=== PATIENT | male | born 2000 | race Caucasian/White ===

== ENCOUNTER 2018-01-12 14:14 | Emergency (ER) | payer OTHER, SELFPAY ==
[2018-01-12 14:19] VITALS: BP 113/68; PULSE 86; RESP 17; TEMP 36.6; O2SAT 97
--- NOTE | 2018-01-12 14:48 | ED.GENADUL_ITS ---
Discharge Plan Disposition Patient Disposition: HOME Condition: Fair Discharge Details Chief Complaint: HeadInjury Clinical Impression: Concussion Primary Care Provider: Sea Maravilla ED Provider: Yumiko Lauren Home Meds and New Rx's Prescriptions: New ondansetron HCl [Zofran] 4 mg tablet 4 mg PO QID PRN (Reason: nausea and vomiting) Qty: 10 RF: 0 Discharge Instructions Instructions: Ondansetron (By mouth), Concussion (ED) Additional Instructions: Encourage hydration. Tylenol and/or ibuprofen as needed for discomfort. Please avoid screens and physical exertion as this will increase your headache and can prolong your postconcussive symptoms. If you develop increased pain, vomiting, altered mentation or other new/worsening symptoms please seek care urgently once again. Please follow-up with primary care in 1 week for reevaluation. Please see attached information on further concussive care. Zofran as prescribed to help with nausea. Stand Alone Forms: Work Release Referrals: Sea Maravilla DO [Primary Care Provider] - ([phone]) Discharge Data Discharge Date/Time-TO BE ENTERED AT DEPARTURE: 01/12/18 15:17 Medical Decision Making Patient is a 17-year-old male, accompanied by significant other, with chief complaint of headache. He reports that last night, he was roughhousing with friends. Reports that he was attempting to slide down a flight of stairs on his bottom when he lost control and fell down the following 8. Was already in a seated position but states that he struck his head against the ground. Denies loss conscious. No visual change. States since that time he has had right-sided head discomfort. Reports the pain is fairly minimal but that his head feels off. Is endorsing nausea but denies any vomiting. Reports he has been able to hydrate minimally Celsius appetite is been down today. Denies any pain in his neck. Several small abrasion over the left side of his upper back on his trapezius. Reports that this clot while going upstairs unclear what he struck this on. On exam, he is neurologically intact with no acute deficit. No morillo sign or raccoon eyes. No findings to suggest bleed or fracture. Full range of motion of the neck. He appears nontoxic. Vital signs are within normal limits. Will treat patient nausea with ODT Zofran and reassess. If this is successful we will send him home with this. Patient was diagnosed with concussion. Encourage hydration. We discussed activities that he should avoid a postconcussive care. Patient was given ODT Zofran. When I went to reassess the patient, he reports that he was not nauseated prior to receiving the medication. Seems to be a miscommunication initially he was reporting that he was actively nauseated. Is requesting discharge. Again, I reiterated postconcussive care. He was given strict return precautions. Advised on activities that he should avoid. Encouraged hydration. All his questions and concerns were addressed and he is in agreement this plan. He will contact primary care tomorrow to schedule follow-up. HPI General Mode of arrival: ambulatory . Date/Time Provider Initiated Documentation: 01/12/18 14:34 . Limitations to Documentation: no limitations . Information obtained by: patient . History of Present Illness 17 year old M presents to the emergency department with the chief complaint of head injury, described as moderate, with intensity rated at 5. Quality is described as aching, and is localized to the head. Patient reports no radiation. Patient started experiencing this day(s) (1) and it has been constant and other (reports improving). No relieving factors improve symptom(s ), No exacerbating factors reported . Patient notes headaches, loss of appetite and nausea/vomiting; denies confusion, cough, fever/chills, malaise, rash, seizure, shortness of breath, syncope and weakness. Related Data Home Medications Medication Instructions Recorded Confirmed ondansetron HCl [Zofran] 4 mg PO QID PRN #10 tab 01/12/18 Previous Rx's Medication Instructions Recorded ondansetron HCl [Zofran] 4 mg PO QID PRN #10 tab 01/12/18 Allergies Allergy/AdvReac Type Severity Reaction Status Date / Time codeine AdvReac Mild hyper Unverified 11/21/17 14:35 General Stated Complaint: HeadInjury IVON: 4 Review of Systems Constitutional Reports as per HPI, Reports fatigue, Reports fever(s), Denies frequent falls, Reports headache(s), Denies malaise, Reports poor appetite (states he has had nauseated since the incident, no vomiting. REports lowered appetite with minimal intake today) and Denies weakness Eyes Denies blurry vision, Denies change in vision, Denies eye discharge and Denies loss of vision ENT Denies abnormal hearing, Denies dizziness and Reports headache(s) Cardiovascular Denies chest pain, Denies syncope and Denies rapid heart rate Respiratory Denies chest congestion and Denies cough Gastrointestinal Denies abdominal pain, Reports nausea and Denies vomiting Musculoskeletal Reports system reviewed and no additional complaints, except as docu, Denies abnormal gait and Denies numbness Integumentary/Breasts Denies erythema, Denies rash and Denies sores Neurologic Reports as per HPI, Denies abnormal hearing, Denies abnormal gait, Denies behavioral changes, Denies dizziness, Denies syncope, Denies frequent falls, Reports headache(s), Denies lack of coordination, Denies focal weakness, Denies loss of vision, Denies memory loss, Denies numbness and Denies weakness Psychiatric Denies behavioral changes and Denies memory loss Endocrine Reports fatigue PFSH Family History Mother Essential hypertension Sister Age: 8 No problems noted. Father No problems noted. Other Diabetes Essential hypertension Medical History Migraines Social History Smoking/Tobacco Use Status: Never Exam Const General: cooperative, healthy appearing, comfortable, no acute distress, well developed and well groomed Nutritional Appearance: average body habitus and well nourished Orientation: alert and awake [facility] Head: normal to inspection, no palpable skull fracture, normocephalic, no Morillo 's sign, no contusions, no hematomas, no lacerations, no raccoon eyes and no scalp tenderness Ears: hearing grossly normal bilaterally, external ears normal and TM's normal bilaterally Mouth: oral mucosae normal, lip normal, tongue normal and oropharynx normal Eyes General: appearance normal, both eyes and all related structures Alignment and Position: alignment normal Periorbital: periorbital findings normal Eyelids: eyelids normal Conjunctivae: conjunctivae normal Pupils: PERRL, normal by confrontation and accommodation normal EOM: EOM intact bilaterally Neck Neck: normal visual inspection, full ROM and nontender Resp Effort & Inspection: normal respiratory effort, able to speak in complete sentences and no respiratory distress Auscultation: clear to auscultation bilaterally Cardio Rate: regular rate Rhythm: regular rhythm Heart Sounds: S1 normal and S2 normal Back/Spine/Pelvis Cervical Spine: normal cervical lordosis and cervical ROM normal Thoracic/Lumbar Spine: thoracic and lumbar spine normal to inspection Skin General skin exam: no rashes or lesions noted Trauma: no lacerations or abrasions Neuro General: alert, awake and oriented x3 Cranial Nerves: CN's II-XI intact bilaterally, PERRL, accommodation normal, EOM intact bilaterally, no nystagmus, facial strength normal, tongue midline, hearing normal and able to rotate head bilaterally Cognition: normal cognition Speech: speech normal Gait: normal gait Motor: muscle tone normal throughout and strength 5/5 throughout Sensory Exam: no sensory deficits noted DTR's: Rt Biceps: 2+, Lt Biceps: 2+, Rt Brachioradialis: 2+, Lt Brachioradialis : 2+, Rt Patellar: 2+, Lt Patellar: 2+, Rt Ankle: 2+ and Lt Ankle: 2+ Coordination: [id number] test normal, [id number] test normal, Romberg test normal and rapid alternating movement UE normal Extrem General: normal to inspection Psych Appearance: grossly normal and well kempt Speech and Movement: speech and movement normal Mood: congruent mood Affect: normal affect Course Vital Signs Temperature 36.6 C 01/12/18 14:19 Pulse 86 01/12/18 14:19 Respiratory Rate 17 01/12/18 14:19 Blood Pressure 113/68 01/12/18 14:19 Pulse Oximetry 97 01/12/18 14:19 Temperature 36.6 C 01/12/18 14:19 Temperature Source Temporal Artery Scan 01/12/18 14:19 Pulse 86 01/12/18 14:19 Respiratory Rate 17 01/12/18 14:19 Respiratory Effort 01/12/18 14:24 Respiratory Depth Normal 01/12/18 14:23 Respiratory Pattern Normal 01/12/18 14:23 Blood Pressure 113/68 01/12/18 14:19 Blood Pressure Position Sitting 01/12/18 14:19 Pulse Oximetry 97 01/12/18 14:19 Oxygen Delivery Method Room Air 01/12/18 14:19 Oxygen Flow Rate 0 01/12/18 14:19 Pain Level 6 01/12/18 14:19
[2018-01-12] MEDS: Ondansetron O.D.T. 4 MG TABEF PO (14:59)
[2018-01-12] MEDS: Acetaminophen 500 MG TAB 1000 MG PO (14:59)
== END 2018-01-12 15:17 | disposition home or self-care (01) ==
PROVIDERS: Emergency Provider Physician Assistant; PCP Family Medicine
DX: S06.0X0A Concussion without loss of consciousness, initial encounter (principal); W10.8XXA Fall (on) (from) other stairs and steps, initial encounter
CPT/HCPCS: 99283

== ENCOUNTER 2018-08-06 12:10 | Emergency (ER) | payer OTHER, SELFPAY ==
[2018-08-06 12:13] VITALS: BP 117/73; PULSE 86; RESP 14; TEMP 36.7; O2SAT 99
--- NOTE | 2018-08-06 12:29 | DI.RAD_ITS ---
SYMPTOMS/DIAGNOSIS: CHEST PAIN PA AND LATERAL CHEST: No priors. The heart is normal in size. The lungs are clear. The mediastinal structures and pleura appear intact. CONCLUSION: Normal chest.
--- NOTE | 2018-08-06 12:39 | ED.GENADUL_ITS ---
Discharge Plan Disposition Patient Disposition: HOME Condition: Improving Discharge Details Chief Complaint: RespSymp Clinical Impression: Atypical chest pain Primary Care Provider: Sea Maravilla ED Provider: Olman Mcgill Home Meds and New Rx's Prescriptions: No Action No Known Home Meds RF: 0 Discharge Instructions Instructions: Chest Pain (ED) Additional Instructions: Please feel free to return the emergency department for any new or worsening symptoms otherwise use [id number] Zantac as directed on packaging to see if this helps your symptoms. Follow-up with your primary care provider for reassessment or if symptoms are not improving. Referrals: Sea Maravilla, [Primary Care Provider] - (As needed for reassessment) Medical Decision Making <Beau Degroot MD - Last Filed: 08/06/18 12:39> ECG Data Attestation: I personally reviewed and interpreted this ECG (s) as follows: Prior ECG tracings: not available for review Interpretation: sinus rhythm, rate of 75, pr 134, no acute st t wave ischemic findings <Olman Mcgill NP - Last Filed: 08/06/18 14:30> Patient presenting the emergency department for chief complaint of chest pain. Patient states that this started 3 days ago and he initially thought it was heartburn. He states that he felt like there was a bubble around his heart and he would have episodes of sharp chest pain causing him to have some shortness of breath. This lasted approximately 30 minutes today causing him to come to the emergency department for evaluation. Patient does state some rapid heart rate sensation during these episodes that does seem to resolve. Patient states it is more of a aching type feeling substernally. Patient denies any fever chills, cough, nausea vomiting or diarrhea. Physical exam is unremarkable and shows normal cardiac exam without any rubs, murmurs, or irregularity. Respiratory exam and otherwise physical exam is unremarkable. Plan to check x-ray and labs. Given the patient states that this started out as a heartburn type sensation patient given GI cocktail pending results. EKG results reviewed with attending physician and shows sinus rhythm with no acute signs of infarct. Blood work was reviewed and showed negative troponin, nondiagnostic CMP and CBC. Chest x-ray was reviewed and shows no acute abnormalities. Patient was reassessed and stated improvement of symptoms. Given patient's description of chest pain and bubble feeling I feel that this is odd but may be gastritis or GERD. Patient was given Zantac to see if this helps and discharged to follow-up with primary care. Patient informed that if this does continue to resolve symptoms that he should take [id number] Zantac as needed. Return precautions discussed. After discussion of diagnosis and plan of care patient has no further needs, questions, or concerns and states clear understanding to return to the emergency department for any worsening symptoms. HPI <Beau Degroot MD - Last Filed: 08/06/18 12:39> General Date/Time Provider Initiated Documentation: 08/06/18 12:14 . Related Data Home Medications Medication Instructions Recorded Confirmed Unknown [No Known Home Meds] 01/17/18 08/06/18 Allergies Allergy/AdvReac Type Severity Reaction Status Date / Time codeine AdvReac Mild hyper Unverified 08/06/18 12:16 <Olman Mcgill NP - Last Filed: 08/06/18 14:30> General Mode of arrival: ambulatory . Limitations to Documentation: no limitations . Information obtained by: patient and RN notes reviewed . History of Present Illness 18 year old M presents to the emergency department with the chief complaint of Chest pain, shortness of breath, described as mild, Quality is described as aching, and is localized to the chest. Patient started experiencing this day(s) (3) and it has been intermittent. No relieving factors improve symptom(s), No exacerbating factors reported . Patient notes no other symptoms.. Patient did receive the following treatments prior to arrival, none General Stated Complaint: RespSymp IVON: 3 <Olman Mcgill NP - Last Filed: 08/06/18 14:30> Constitutional Denies chills, Denies fever(s) and Denies malaise Cardiovascular Reports as per HPI, Reports chest pain, Denies chest pain with activity, Denies syncope, Reports rapid heart rate, Denies irregular heart rhythm, Denies leg edema, Denies palpitations, Reports dyspnea and Denies dyspnea on exertion Respiratory Denies cough, Denies hemoptysis, Reports dyspnea and Denies dyspnea on exertion Gastrointestinal Denies abdominal pain, Denies nausea and Denies vomiting Neurologic Denies syncope Psychiatric Reports anxiety Endocrine Denies palpitations PFSH <Beau Degroot MD - Last Filed: 08/06/18 12:39> Medical History Migraine without aura and without status migrainosus, not intractable (Chronic 01/11/15) Heart murmur (Chronic 01/15/12) Migraines Family History Mother Essential hypertension Sister Age: 8 No problems noted. Father No problems noted. Other Diabetes Essential hypertension Social History Smoking/Tobacco Use Status: Never Alcohol Intake: current Alcohol Intake frequency: holidays/special occasions only Drug use: Never Substance use type: does not use Household members: significant other Housing: apartment current occupation: [employer] Pets and animals: Yes Pets and animals: cat(s) Current gender identity: male What type of physical activity do you participate in: regular exercise Frequency: 3-4 times per week Do you feel safe at home: Yes Do you feel safe in your relationship?: Yes <Olman Mcgill NP - Last Filed: 08/06/18 14:30> Const General: cooperative, healthy appearing, comfortable, no acute distress, not diaphoretic and not ill appearing Nutritional Appearance: average body habitus Orientation: alert, awake and oriented x3 Limitations: mental status not altered Neck Neck: normal visual inspection, full ROM, trachea midline, supple and no anterior neck swelling Thyroid: thyroid normal Carotids: normal carotid upstroke and no bruits Chest Chest: normal inspection of the chest Resp Effort & Inspection: normal respiratory effort and able to speak in complete sentences Auscultation: clear to auscultation bilaterally Cardio Jugular venous pressure: no JVD Palpation: normal PMI Rate: regular rate Rhythm: regular rhythm Heart Sounds: S1 normal, S2 normal, no click, no gallops, no murmurs and no rubs Bruits: no abdominal aortic bruits and no carotid bruits Pulses: radial pulses present bilaterally 2+ GI Palpation: soft and no pulsatile masses Auscultation: normal bowel sounds Skin General skin exam: no rashes or lesions noted Neuro General: alert, awake, oriented x3, tone normal and moves all extremities <Olman Mcgill NP - Last Filed: 08/06/18 14:30> Vital Signs Temperature 36.7 C 08/06/18 12:13 Pulse 86 08/06/18 12:13 Respiratory Rate 14 08/06/18 12:13 Blood Pressure 117/73 08/06/18 12:13 Pulse Oximetry 99 08/06/18 12:13 Temperature 36.7 C 08/06/18 12:13 Temperature Source Temporal Artery Scan 08/06/18 12:13 Pulse 86 08/06/18 12:13 Respiratory Rate 14 08/06/18 12:13 Respiratory Effort Non-Labored 08/06/18 12:18 Respiratory Depth Normal 08/06/18 12:18 Blood Pressure 117/73 08/06/18 12:13 Blood Pressure Position Sitting 08/06/18 12:13 Pulse Oximetry 99 08/06/18 12:13 Oxygen Delivery Method Room Air 08/06/18 12:13 Oxygen Flow Rate 0 08/06/18 12:13 Pain Level 4 08/06/18 12:36
[2018-08-06 13:28] LABS: Absolute Eosinophil Count 0.02 k/cumm (0.0-0.7); Absolute Lymphocyte Count 1.48 k/cumm (1.2-3.4); Absolute Monocyte Count 0.26 k/cumm (0.11-0.7); Absolute Neutrophil Count 2.63 k/cumm (1.2-6.7); Eosinophils % 0.5; HCT 43.2 % (40.0-50.0); HGB 15.3 g/dL (13.5-17.5); Lymphocytes % 33.7; Mean Corp. HGB Concentration 35.4 g/dL (32.0-36.0); Mean Corpuscular Hemoglobin 31.6 pg (27.0-33.0); Mean Corpuscular Volume 89.3 fL (80-95); Mean Platelet Volume 9.5 fL (8.0-11.0); Monocytes % 5.9; Neutrophils % 59.9; Platelet Count 234 x1000/uL (130-400); RBC 4.84 m/cumm (4.50-6.00); RBC Distribution Width 11.8 % (11.8-14.1); White Blood Cell Count 4.39 k/cumm (4.4-10.8)
[2018-08-06 13:39] LABS: ALT 40 U/L (12-78); AST 17 U/L (15-37); Alkaline Phosphatase 63 U/L (46-116); Anion Gap 7.9 mmol/L (3-11); BUN 9 mg/dL (7-18); Bilirubin, Total 0.6 mg/dL (0.2-1.0); CO2 28.1 mmol/L (21.0-32.0); CREATININE 0.75 mg/dL (0.70-1.30); Calcium 8.4 mg/dL (8.5-10.1); Chloride 104 mmol/L (98-107); Glucose 89 mg/dL (70-100); Magnesium 2.2 mg/dL (1.8-2.4); Potassium 3.8 mmol/L (3.5-5.1); Sodium 140 mmol/L (136-145); Total Protein 7.3 g/dL (6.4-8.2)
[2018-08-06 13:42] LABS: Troponin I < 0.02 ng/mL (0.00-0.06)
[2018-08-06 14:09] VITALS: BP 120/63; PULSE 84; RESP 16; TEMP 36.6; O2SAT 99
== END 2018-08-06 14:08 | disposition home or self-care (01) ==
PROVIDERS: Emergency Provider Nurse Practitioner Family; PCP Family Medicine
DX: R07.89 Other chest pain (principal); R01.1 Cardiac murmur, unspecified
CPT/HCPCS: 36415; 80053; 93005; 99285; 71046; 83735; 84484; 85025; 93010

== ENCOUNTER 2018-09-10 10:49 | Emergency (ER) | payer OTHER, SELFPAY ==
[2018-09-10 10:58] VITALS: BP 126/76; PULSE 79; RESP 20; TEMP 36.7; O2SAT 96
[2018-09-10] MEDS: Ibuprofen 600 MG TAB PO (11:44)
--- NOTE | 2018-09-10 11:55 | W.ED.GENAD ---
Discharge Plan Disposition Patient Disposition: HOME Condition: Good Discharge Details Chief Complaint: Headache Clinical Impression: Facial tingling sensation Primary Care Provider: Sea Maravilla ED Provider: Olman Mcgill Home Meds and New Rx's Prescriptions: No Action No Known Home Meds RF: 0 fluticasone furoate 27.5 mcg/actuation spray,suspension 2 spray MARCOS DAILY Qty: 9.1 RF: 0 rizatriptan 10 mg tablet 10 mg PO ONCE Qty: 10 RF: 0 Discharge Instructions Instructions: Paresthesia (ED) Additional Instructions: Return to the emergency department for any new or significant worsening of symptoms including rash, headache/neurological change, and or other concerns. Otherwise follow-up with your primary care provider for reassessment if not improving. If this turns into your typical migraine symptoms take your migraine medication and/or Excedrin Migraine [id number]. Referrals: Sea Maravilla DO [Primary Care Provider] - (As needed for reassessment or if not improved) Discharge Data Discharge Date/Time-TO BE ENTERED AT DEPARTURE: 09/10/18 12:05 Medical Decision Making Patient presenting the emergency department for chief complaint of right-sided facial tingling sensation. Patient denies any numbness, motor deficit, vision change, headache, or other neurological symptoms. He does state 2 days ago he played softball and yesterday noted a slightly sore neck but denies any neck pain, movement abnormalities, fever chills nausea vomiting. Patient also does report history of migraine headaches but has never had an aura with his headaches. Physical exam is unremarkable for any neurological findings and shows normal cranial nerve exam. Patient has perceived tingling to right cheek but otherwise facial nerve is fully intact and patient has full sensation to this area. Upon further questioning patient does state that he had been outside in the [facility] on but denies any knowledge of tick bite. Given odd neurological symptoms with no other findings tick panel was ordered but otherwise do not have any specific emergent diagnosis to go with patient symptoms. Also of consideration is possible aura type symptoms to patient's migraine but at this time he has no headache symptoms. Given some symptoms of cervical strain yesterday that resolved did plan on giving patient ibuprofen to see if this improves any of the symptoms otherwise discussed strict return precautions for any new or worsening symptoms and for patient to follow-up with primary care provider if not improving. HPI General Mode of arrival: ambulatory. Date/Time Provider Initiated Documentation: 09/10/18 11:07. Limitations to Documentation: no limitations. Information obtained by: patient, RN notes reviewed and old records reviewed. History of Present Illness 18 year old M presents to the emergency department with the chief complaint of Facial tingling, Quality is described as other (Denies pain or discomfort), and is localized to the face and right. Patient started experiencing this day(s) (1) and it has been intermittent. No relieving factors improve symptom(s), Patient notes no other symptoms.. Patient did receive the following treatments prior to arrival, none Related Data Home Medications Medication Instructions Recorded Confirmed Unknown [No Known Home Meds] 01/17/18 09/11/18 fluticasone furoate 27.5 2 spray MARCOS DAILY #9.1 ml 09/11/18 09/11/18 mcg/actuation nasal spray,suspension rizatriptan 10 mg tablet 10 mg PO ONCE #10 tab 09/11/18 09/11/18 Previous Rx's Medication Instructions Recorded fluticasone furoate 27.5 2 spray MARCOS DAILY #9.1 ml 09/11/18 mcg/actuation nasal spray,suspension rizatriptan 10 mg tablet 10 mg PO ONCE #10 tab 09/11/18 Allergies Allergy/AdvReac Type Severity Reaction Status Date / Time codeine AdvReac Mild hyper Verified 09/11/18 10:44 General Stated Complaint: Headache IVON: 3 Review of Systems Constitutional Denies body ache(s), Denies chills, Denies fever(s) and Denies headache(s) Eyes Denies change in vision ENT Denies dizziness and Denies headache(s) Cardiovascular Denies chest pain and Denies syncope Gastrointestinal Denies nausea and Denies vomiting Musculoskeletal Reports tingling Neurologic Reports as per HPI, Denies abnormal speech, Denies burning sensations, Denies dizziness, Denies syncope, Denies headache(s), Denies focal weakness, Denies sensory deficit, Reports tingling and Denies paresthesias [facility] Social History Smoking/Tobacco Use Status: Never Alcohol Intake: current Alcohol Intake frequency: holidays/special occasions only Drug use: Never Substance use type: does not use Household members: significant other Housing: apartment current occupation: [employer] Pets and animals: Yes Pets and animals: cat(s) Current gender identity: male What type of physical activity do you participate in: regular exercise Frequency: 3-4 times per week Do you feel safe at home: Yes Do you feel safe in your relationship?: Yes Exam Const General: cooperative, healthy appearing, no acute distress and well groomed Orientation: alert, awake and oriented x3 HENMT Head: normal to inspection Ears: hearing grossly normal bilaterally and TM's normal bilaterally Mouth: oral mucosae normal and moist mucous membranes Throat: posterior oropharynx normal Eyes Visual Fletcher: normal visual fletcehr by confrontation Alignment and Position: alignment normal Periorbital: periorbital findings normal Eyelids: eyelids normal Sclera: sclerae normal Cornea: corneas normal Pupils: PERRL EOM: EOM intact bilaterally and No nystagmus Neck Neck: normal visual inspection, full ROM, no lymphadenopathy and no meningeal signs Resp Effort & Inspection: normal respiratory effort and able to speak in complete sentences Auscultation: clear to auscultation bilaterally Cardio Rate: regular rate Rhythm: regular rhythm Heart Sounds: S1 normal and S2 normal Neuro General: alert, awake, oriented x3, gait normal, tone normal, moves all extremities, normal light touch, pain and propioception, no focal motor deficits, CN's II-XI intact bilaterally and not confused Cranial Nerves: no nystagmus Cognition: normal cognition Speech: speech normal Motor: muscle tone normal throughout, strength 5/5 throughout, no pronator drift, no movement abnormalities noted and no fasciculations Sensory Exam: no sensory deficits noted Coordination: [id number] test normal, Romberg test normal, Does not sway with eyes open, rapid alternating movement UE normal and rapid alternating movement LE normal Course Vital Signs Temperature 36.7 C 09/10/18 10:58 Pulse 79 09/10/18 10:58 Respiratory Rate 20 09/10/18 10:58 Blood Pressure 126/76 09/10/18 10:58 Pulse Oximetry 96 09/10/18 10:58 Temperature 36.7 C 09/10/18 10:58 Temperature Source Tympanic 09/10/18 10:58 Pulse 79 09/10/18 10:58 Respiratory Rate 20 09/10/18 10:58 Respiratory Effort Non-Labored 09/10/18 11:02 Blood Pressure 126/76 09/10/18 10:58 Blood Pressure Position Supine 09/10/18 10:58 Pulse Oximetry 96 09/10/18 10:58 Oxygen Delivery Method Room Air 09/10/18 10:58 Oxygen Flow Rate 0 09/10/18 10:58 Pain Level 5 09/10/18 10:58
--- NOTE | 2018-09-10 12:00 | ED.GENADUL_ITS ---
Discharge Plan Disposition Patient Disposition: HOME Condition: Good Discharge Details Chief Complaint: Headache Clinical Impression: Facial tingling sensation Primary Care Provider: Sea Maravilla ED Provider: Olman Mcgill Home Meds and New Rx's Prescriptions: No Action No Known Home Meds RF: 0 fluticasone furoate 27.5 mcg/actuation spray,suspension 2 spray MARCOS DAILY Qty: 9.1 RF: 0 rizatriptan 10 mg tablet 10 mg PO ONCE Qty: 10 RF: 0 Discharge Instructions Instructions: Paresthesia (ED) Additional Instructions: Return to the emergency department for any new or significant worsening of symptoms including rash, headache/neurological change, and or other concerns. Otherwise follow-up with your primary care provider for reassessment if not improving. If this turns into your typical migraine symptoms take your migraine medication and/or Excedrin Migraine [id number]. Referrals: Sea Maravilla DO [Primary Care Provider] - (As needed for reassessment or if not improved) Discharge Data Discharge Date/Time-TO BE ENTERED AT DEPARTURE: 09/10/18 12:05 Medical Decision Making Patient presenting the emergency department for chief complaint of right-sided facial tingling sensation. Patient denies any numbness, motor deficit, vision change, headache, or other neurological symptoms. He does state 2 days ago he played softball and yesterday noted a slightly sore neck but denies any neck pain, movement abnormalities, fever chills nausea vomiting. Patient also does report history of migraine headaches but has never had an aura with his headaches. Physical exam is unremarkable for any neurological findings and shows normal cranial nerve exam. Patient has perceived tingling to right cheek but otherwise facial nerve is fully intact and patient has full sensation to this area. Upon further questioning patient does state that he had been outside in the [facility] on but denies any knowledge of tick bite. Given odd neurological symptoms with no other findings tick panel was ordered but otherwise do not have any specific emergent diagnosis to go with patient symptoms. Also of consideration is possible aura type symptoms to patient's migraine but at this time he has no headache symptoms. Given some symptoms of cervical strain yesterday that resolved did plan on giving patient ibuprofen to see if this improves any of the symptoms otherwise discussed strict return precautions for any new or worsening symptoms and for patient to follow-up with primary care provider if not improving. HPI General Mode of arrival: ambulatory . Date/Time Provider Initiated Documentation: 09/10/18 11:07 . Limitations to Documentation: no limitations . Information obtained by: patient, RN notes reviewed and old records reviewed . History of Present Illness 18 year old M presents to the emergency department with the chief complaint of Facial tingling, Quality is described as other (Denies pain or discomfort), and is localized to the face and right. Patient started experiencing this day(s) (1) and it has been intermittent. No relieving factors improve symptom(s), Patient notes no other symptoms.. Patient did receive the following treatments prior to arrival, none Related Data Home Medications Medication Instructions Recorded Confirmed Unknown [No Known Home Meds] 01/17/18 09/11/18 fluticasone furoate 27.5 2 spray MARCOS DAILY #9.1 ml 09/11/18 09/11/18 mcg/actuation nasal spray,suspension rizatriptan 10 mg tablet 10 mg PO ONCE #10 tab 09/11/18 09/11/18 Previous Rx's Medication Instructions Recorded fluticasone furoate 27.5 2 spray MARCOS DAILY #9.1 ml 09/11/18 mcg/actuation nasal spray,suspension rizatriptan 10 mg tablet 10 mg PO ONCE #10 tab 09/11/18 Allergies Allergy/AdvReac Type Severity Reaction Status Date / Time codeine AdvReac Mild hyper Verified 09/11/18 10:44 General Stated Complaint: Headache IVON: 3 Review of Systems Constitutional Denies body ache(s), Denies chills, Denies fever(s) and Denies headache(s) Eyes Denies change in vision ENT Denies dizziness and Denies headache(s) Cardiovascular Denies chest pain and Denies syncope Gastrointestinal Denies nausea and Denies vomiting Musculoskeletal Reports tingling Neurologic Reports as per HPI, Denies abnormal speech, Denies burning sensations, Denies dizziness, Denies syncope, Denies headache(s), Denies focal weakness, Denies sensory deficit, Reports tingling and Denies paresthesias [facility] Social History Smoking/Tobacco Use Status: Never Alcohol Intake: current Alcohol Intake frequency: holidays/special occasions only Drug use: Never Substance use type: does not use Household members: significant other Housing: apartment current occupation: [employer] Pets and animals: Yes Pets and animals: cat(s) Current gender identity: male What type of physical activity do you participate in: regular exercise Frequency: 3-4 times per week Do you feel safe at home: Yes Do you feel safe in your relationship?: Yes Exam Const General: cooperative, healthy appearing, no acute distress and well groomed Orientation: alert, awake and oriented x3 HENMT Head: normal to inspection Ears: hearing grossly normal bilaterally and TM's normal bilaterally Mouth: oral mucosae normal and moist mucous membranes Throat: posterior oropharynx normal Eyes Visual Fletcher: normal visual fletcher by confrontation Alignment and Position: alignment normal Periorbital: periorbital findings normal Eyelids: eyelids normal Sclera: sclerae normal Cornea: corneas normal Pupils: PERRL EOM: EOM intact bilaterally and No nystagmus Neck Neck: normal visual inspection, full ROM, no lymphadenopathy and no meningeal signs Resp Effort & Inspection: normal respiratory effort and able to speak in complete sentences Auscultation: clear to auscultation bilaterally Cardio Rate: regular rate Rhythm: regular rhythm Heart Sounds: S1 normal and S2 normal Neuro General: alert, awake, oriented x3, gait normal, tone normal, moves all extremities, normal light touch, pain and propioception, no focal motor deficits, CN's II-XI intact bilaterally and not confused Cranial Nerves: no nystagmus Cognition: normal cognition Speech: speech normal Motor: muscle tone normal throughout, strength 5/5 throughout, no pronator drift, no movement abnormalities noted and no fasciculations Sensory Exam: no sensory deficits noted Coordination: [id number] test normal, Romberg test normal, Does not sway with eyes open, rapid alternating movement UE normal and rapid alternating movement LE normal Course Vital Signs Temperature 36.7 C 09/10/18 10:58 Pulse 79 09/10/18 10:58 Respiratory Rate 20 09/10/18 10:58 Blood Pressure 126/76 09/10/18 10:58 Pulse Oximetry 96 09/10/18 10:58 Temperature 36.7 C 09/10/18 10:58 Temperature Source Tympanic 09/10/18 10:58 Pulse 79 09/10/18 10:58 Respiratory Rate 20 09/10/18 10:58 Respiratory Effort Non-Labored 09/10/18 11:02 Blood Pressure 126/76 09/10/18 10:58 Blood Pressure Position Supine 09/10/18 10:58 Pulse Oximetry 96 09/10/18 10:58 Oxygen Delivery Method Room Air 09/10/18 10:58 Oxygen Flow Rate 0 09/10/18 10:58 Pain Level 5 09/10/18 10:58
[2018-09-10 12:05] VITALS: BP 117/69; PULSE 78; RESP 18; TEMP 36.7; O2SAT 97
[2018-09-11 10:49] LABS: Lyme Ab w Rflx to Lyme Confirm Negative
[2018-09-12 19:18] LABS: Anaplasma phagocytophilum Negative (Negative); B. miyamotoi PCR Negative (Negative); Babesia divergens/MO-1 Negative (Negative); Babesia duncani Negative (Negative); Babesia microti Negative (Negative); Ehrlichia chaffeensis Negative (Negative); Ehrlichia ewingii/canis Negative (Negative); Ehrlichia muris eauclairensis Negative (Negative)
== END 2018-09-10 12:05 | disposition home or self-care (01) ==
PROVIDERS: Emergency Provider Nurse Practitioner Family; PCP Family Medicine
DX: R20.2 Paresthesia of skin (principal); M54.2 Cervicalgia
CPT/HCPCS: 36415; 99282; 86618; 87798

== ENCOUNTER 2018-10-03 23:35 | Emergency (ER) | payer OTHER, SELFPAY ==
[2018-10-03 23:52] VITALS: BP 136/90; PULSE 74; RESP 16; TEMP 37.2; O2SAT 96
--- NOTE | 2018-10-03 23:52 | W.ED.GENAD ---
Discharge Plan Disposition Patient Disposition: HOME Condition: Good Discharge Details Chief Complaint: GenMedical Clinical Impression: Left inguinal pain Primary Care Provider: Sea Maravilla ED Provider: Sebastián Lucia Meds and New Rx's Prescriptions: Continued fluticasone furoate 27.5 mcg/actuation spray,suspension 2 spray MARCOS DAILY Qty: 9.1 RF: 0 rizatriptan 10 mg tablet 10 mg PO ONCE Qty: 10 RF: 0 Discharge Instructions Instructions: Inguinal Hernia (ED) Additional Instructions: This does not appear to be related to kidney stone, testicular torsion, infection. You do seem to have a small reducible inguinal hernia. Use Motrin and ice over the weekend as needed. If it continues to be symptomatic you will need to follow-up with a surgeon. Return to ED if you develop fever,\flank pain, testicular pain or swelling. Referrals: Stephanie Samano MD [ [facility] STAFF PHYSICIAN] - Sea Maravilla DO [Primary Care Provider] - Medical Decision Making Patient reports pain is getting better. He denies having pain in the testicle. Cremaster reflex normal bilaterally with nontender and normal size testicles. Epididymis does not appear tender or swollen. His discomfort seems to be in the left inguinal canal. I do feel a bulge push out with coughing and suspect is probably a small hernia. Cannot explain why acute onset of pain at rest. I do not think we are dealing with testicular torsion or epididymitis or orchitis. Will give Motrin and obtain UA and reevaluate. Pain has resolved with Motrin. Continues to have no back or flank pain and has no testicular pain. His urinalysis is negative. I do think it probably is related to a small left inguinal hernia. It is only present with increased intra-abdominal pressure. May continue Motrin over the next couple of days and avoid heavy lifting. Will need follow-up with a surgeon if it continues to be symptomatic. Return to ED if he develops fever, back or flank pain, testicular pain or swelling. HPI General Mode of arrival: ambulatory. Date/Time Provider Initiated Documentation: 10/03/18 23:51. Limitations to Documentation: no limitations. Information obtained by: patient. HPI Narrative: Patient presents to the ED with complaint of acute onset of left groin pain. Patient was sitting on the couch watching TV. He had acute onset of groin pain. He has been doing a lot of lifting over the last couple of days but was not actively lifting tonight. Pain started less than 30 minutes ago. It continues to bother him. It does not radiate anywhere. He does not feel that it really involves his testicle but seems higher up. There is no swelling or redness. There is no nausea or vomiting. He has no abdominal pain or back pain. Related Data Home Medications Medication Instructions Recorded Confirmed fluticasone furoate 27.5 2 spray MARCOS DAILY #9.1 ml 09/11/18 10/03/18 mcg/actuation nasal spray,suspension rizatriptan 10 mg tablet 10 mg PO ONCE #10 tab 09/11/18 10/03/18 Previous Rx's Medication Instructions Recorded fluticasone furoate 27.5 2 spray MARCOS DAILY #9.1 ml 09/11/18 mcg/actuation nasal spray,suspension rizatriptan 10 mg tablet 10 mg PO ONCE #10 tab 09/11/18 Allergies Allergy/AdvReac Type Severity Reaction Status Date / Time codeine AdvReac Mild hyper Verified 10/03/18 23:58 General IVON: 3 Review of Systems Review of Systems As documented in HPI otherwise negative as below. Const: no fever, chills, weakness Resp: no cough, SOB, pleuritic pain CV: no CP, diaphoresis, edema, syncope GI: no abdominal pain, nausea, vomiting, diarrhea Neuro: no headache, numbness, focal weakness, confusion PFSH Medical History Migraine without aura and without status migrainosus, not intractable (Chronic 01/11/15) Heart murmur (Chronic 01/15/12) Social History Smoking/Tobacco Use Status: Never Alcohol Intake: current Alcohol Intake frequency: holidays/special occasions only Drug use: Never Substance use type: does not use Household members: significant other Housing: apartment current occupation: [employer] Pets and animals: Yes Pets and animals: cat(s) Current gender identity: male What type of physical activity do you participate in: regular exercise Frequency: 3-4 times per week Do you feel safe at home: Yes Do you feel safe in your relationship?: Yes Exam Narrative Exam Narrative: Vitals: Afebrile with normal vitals. Const: WDWN male in NAD. HEENT: NC/AT. Normal facial exam. Neck: Supple. Trachea midline. Lungs: Normal respiratory effort. GI: Soft. NT/ND. No guarding or rebound. : Normal appearing male genitalia. No swelling, erythema, lesions. Bilateral testicles normal in size and nontender. Bilateral epididymis nontender. Right inguinal canal normal. Left inguinal canal with tenderness present. No bulge except with coughing. Normal bilateral cremaster reflex. Back: No CVAT. Neuro: A+O x 3. CN grossly in tact. Good strength and no focal deficit. Ext: No C/C/E. No deformity or tenderness. Skin: Warm and dry without rash.
[2018-10-03 23:56] VITALS: RESP 16
[2018-10-04] MEDS: Ibuprofen 600 MG TAB PO (00:01)
--- NOTE | 2018-10-04 00:01 | ED.GENADUL_ITS ---
Discharge Plan Disposition Patient Disposition: HOME Condition: Good Discharge Details Chief Complaint: GenMedical Clinical Impression: Left inguinal pain Primary Care Provider: Sea Maravilla ED Provider: Sebastián Lucia Meds and New Rx's Prescriptions: Continued fluticasone furoate 27.5 mcg/actuation spray,suspension 2 spray MARCOS DAILY Qty: 9.1 RF: 0 rizatriptan 10 mg tablet 10 mg PO ONCE Qty: 10 RF: 0 Discharge Instructions Instructions: Inguinal Hernia (ED) Additional Instructions: This does not appear to be related to kidney stone, testicular torsion, infection. You do seem to have a small reducible inguinal hernia. Use Motrin and ice over the weekend as needed. If it continues to be symptomatic you will need to follow-up with a surgeon. Return to ED if you develop fever,\flank pain, testicular pain or swelling. Referrals: Stephanie Samano MD [ [facility] STAFF PHYSICIAN] - Sea Maravilla DO [Primary Care Provider] - Medical Decision Making Patient reports pain is getting better. He denies having pain in the testicle. Cremaster reflex normal bilaterally with nontender and normal size testicles. Epididymis does not appear tender or swollen. His discomfort seems to be in the left inguinal canal. I do feel a bulge push out with coughing and suspect is probably a small hernia. Cannot explain why acute onset of pain at rest. I do not think we are dealing with testicular torsion or epididymitis or orchitis. Will give Motrin and obtain UA and reevaluate. Pain has resolved with Motrin. Continues to have no back or flank pain and has no testicular pain. His urinalysis is negative. I do think it probably is related to a small left inguinal hernia. It is only present with increased intra-abdominal pressure. May continue Motrin over the next couple of days and avoid heavy lifting. Will need follow-up with a surgeon if it continues to be symptomatic. Return to ED if he develops fever, back or flank pain, testicular pain or swelling. HPI General Mode of arrival: ambulatory . Date/Time Provider Initiated Documentation: 10/03/18 23:51 . Limitations to Documentation: no limitations . Information obtained by: patient . HPI Narrative: Patient presents to the ED with complaint of acute onset of left groin pain. Patient was sitting on the couch watching TV. He had acute onset of groin pain. He has been doing a lot of lifting over the last couple of days but was not actively lifting tonight. Pain started less than 30 minutes ago. It continues to bother him. It does not radiate anywhere. He does not feel that it really involves his testicle but seems higher up. There is no swelling or redness. There is no nausea or vomiting. He has no abdominal pain or back pain. Related Data Home Medications Medication Instructions Recorded Confirmed fluticasone furoate 27.5 2 spray MARCOS DAILY #9.1 ml 09/11/18 10/03/18 mcg/actuation nasal spray,suspension rizatriptan 10 mg tablet 10 mg PO ONCE #10 tab 09/11/18 10/03/18 Previous Rx's Medication Instructions Recorded fluticasone furoate 27.5 2 spray MARCOS DAILY #9.1 ml 09/11/18 mcg/actuation nasal spray,suspension rizatriptan 10 mg tablet 10 mg PO ONCE #10 tab 09/11/18 Allergies Allergy/AdvReac Type Severity Reaction Status Date / Time codeine AdvReac Mild hyper Verified 10/03/18 23:58 General IVON: 3 Review of Systems Review of Systems As documented in HPI otherwise negative as below. Const: no fever, chills, weakness Resp: no cough, SOB, pleuritic pain CV: no CP, diaphoresis, edema, syncope GI: no abdominal pain, nausea, vomiting, diarrhea Neuro: no headache, numbness, focal weakness, confusion PFSH Medical History Migraine without aura and without status migrainosus, not intractable (Chronic 01/11/15) Heart murmur (Chronic 01/15/12) Social History Smoking/Tobacco Use Status: Never Alcohol Intake: current Alcohol Intake frequency: holidays/special occasions only Drug use: Never Substance use type: does not use Household members: significant other Housing: apartment current occupation: [employer] Pets and animals: Yes Pets and animals: cat(s) Current gender identity: male What type of physical activity do you participate in: regular exercise Frequency: 3-4 times per week Do you feel safe at home: Yes Do you feel safe in your relationship?: Yes Exam Narrative Exam Narrative: Vitals: Afebrile with normal vitals. Const: WDWN male in NAD. HEENT: NC/AT. Normal facial exam. Neck: Supple. Trachea midline. Lungs: Normal respiratory effort. GI: Soft. NT/ND. No guarding or rebound. : Normal appearing male genitalia. No swelling, erythema, lesions. Bilateral testicles normal in size and nontender. Bilateral epididymis nontender. Right inguinal canal normal. Left inguinal canal with tenderness present. No bulge except with coughing. Normal bilateral cremaster reflex. Back: No CVAT. Neuro: A+O x 3. CN grossly in tact. Good strength and no focal deficit. Ext: No C/C/E. No deformity or tenderness. Skin: Warm and dry without rash.
[2018-10-04 00:32] LABS: Bilirubin Negative (Negative); Blood Negative (Negative); Clarity Clear (Clear); Glucose Negative (Negative); Ketones Negative (Negative); Leukocyte Esterase Negative (Negative); Nitrite Negative (Negative); Specific Gravity 1.015 (1.005-1.025); Urobilinogen 0.2 EU/dL (Up TO 0.2)
== END 2018-10-04 00:56 | disposition home or self-care (01) ==
PROVIDERS: Emergency Provider Emergency Medicine; PCP Family Medicine
DX: R10.30 Lower abdominal pain, unspecified (principal)
CPT/HCPCS: 99282; 81003

== ENCOUNTER 2019-01-22 12:55 | Emergency (ER) | payer OTHER, SELFPAY ==
[2019-01-22 12:49] VITALS: BP 149/85; PULSE 103; RESP 20; TEMP 36.7; O2SAT 99
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
[2019-01-22 14:00] VITALS: BP 121/82; PULSE 91; RESP 14; TEMP 36.9; O2SAT 98
== END 2019-01-22 14:07 | disposition home or self-care (01) ==
LOC: ER 14:07
PROVIDERS: Emergency Provider Physician Assistant; PCP Family Medicine
DX: S00.01XA Abrasion of scalp, initial encounter (principal); S80.02XA Contusion of left knee, initial encounter; V43.52XA Car driver injured in collision with other type car in traffic accident, initial encounter
CPT/HCPCS: 99282

== ENCOUNTER 2019-04-15 08:30 | Emergency (ER) | payer OTHER, SELFPAY ==
[2019-04-15 08:33] VITALS: BP 121/74; PULSE 72; RESP 12; TEMP 36.3; O2SAT 97
--- NOTE | 2019-04-15 08:50 | ED.GENADUL_ITS ---
Discharge Plan Disposition Patient Disposition: HOME Condition: Stable Discharge Details Chief Complaint: EyeProblem Clinical Impression: External hordeolum Primary Care Provider: Sea Maravilla ED Provider: Andrea Godinez Home Meds and New Rx's Prescriptions: No Action fluticasone furoate 27.5 mcg/actuation spray,suspension 2 spray MARCOS DAILY Qty: 9.1 RF: 0 Discharge Instructions Additional Instructions: 1. Drink plenty of fluids. 2. Continue all medications as prescribed. 3. Acetaminophen 1000mg every 4 hours (up to 5 time a day) and/or ibuprofen 600mg every 6 hours as needed for fever or pain. 4. Warm compresses to eye for 15 minutes at a time 5 times a day. Return to the Emergency Department (ED) if your condition worsens, does not improve as expected, or for ANY other concerns. Specifically, return if you have new or uncontrolled pain, worsening fever, difficulty breathing, vomiting, or are unable to drink fluids. Medical Decision Making Presents with worsening left eye/eyelid discomfort over the past 3 days. Exam consistent with an isolated hordeolum with a small pustule visualized. Discussed expectant management using warm compresses. Discharged with plan for OTC analgesia, frequent warm compresses, and follow-up as needed in 1 week if his symptoms do not improve. Given usual and customary return instructions at time of discharge. Medical Records Medical records reviewed: Yes I reviewed the patient's medical records. HPI 18-year-old with a history of migraines who presents with worsening left upper eyelid pain over the past 3 days. Noticed initial mild discomfort which has been progressive and now associated with itching and low-grade pain. He also noticed a lesion in the central portion of his eyelid at the margin. Pain, redness, and swelling has been increasing over the past 3 days. He denies primary discomfort in his global or change in visual acuity. He normally wears corrective lenses but has not been doing so recently. General Date/Time Provider Initiated Documentation: 04/15/19 08:48 . Related Data Home Medications Medication Instructions Recorded Confirmed fluticasone furoate 27.5 2 spray MARCOS DAILY #9.1 ml 09/11/18 04/15/19 mcg/actuation nasal spray,suspension Previous Rx's Medication Instructions Recorded fluticasone furoate 27.5 2 spray MARCOS DAILY #9.1 ml 09/11/18 mcg/actuation nasal spray,suspension Allergies Allergy/AdvReac Type Severity Reaction Status Date / Time codeine AdvReac Mild hyper Verified 04/15/19 08:36 General Stated Complaint: EyeProblem IVON: 5 Review of Systems All systems reviewed & are unremarkable except as noted in HPI and below PFSH Medical History Heart murmur (Chronic 01/15/12) innocent Migraine without aura and without status migrainosus, not intractable (Chronic 01/11/15) Hx migraines since 8yo, IMproved in recent years .. CUrrent H/A not migranous per se, but assoc neuralgia may be new symptoms for him .. Suggest Neuro to review/evaluate, especially as he may have migraines to some extent through life. Mild concussion (Acute) Family History Mother Essential hypertension Sister Age: 9 No problems noted. Father No problems noted. Other Diabetes MGGF Essential hypertension MGM Social History Smoking/Tobacco Use Status: Never Alcohol Intake: current Alcohol Intake frequency: holidays/special occasions only Drug use: Never Substance use type: does not use Household members: significant other Housing: apartment current occupation: [employer] Pets and animals: Yes Pets and animals: cat(s) Current gender identity: male What type of physical activity do you participate in: regular exercise Frequency: 3-4 times per week Do you feel safe at home: Yes Do you feel safe in your relationship?: Yes Exam Narrative Exam Narrative: Nursing note and vital signs have been reviewed and noted. GENERAL: alert, active, no acute distress, well -hydrated, well-nourished HEENT: atraumatic/normocephalic, PERRLA, EOMI, conjunctiva clear, external ears/canals normal, nasal mucosa normal; left eye: There is an area of erythema induration and swelling and a small superficial pustule central upper lid at the margin. Findings consistent with a hordeolum. NECK: supple, full range of motion CARDIOVASCULAR: nl pulses, no edema PULMONARY: nl effort, no audible wheezing or stridor ABDOMEN: non-distended EXTREMITY: normal muscle tone, all joints with FROM, no deformity NUERO: normal mentation, moving all extremities, normal stance and gait, PSYCH: alert and oriented SKIN: no new rashes or lesions Course Vital Signs Vital signs: Vital Signs Temperature 97.3 F L 04/15/19 08:33 Pulse 72 04/15/19 08:33 Respiratory Rate 12 04/15/19 08:33 Blood Pressure 121/74 04/15/19 08:33 Pulse Oximetry 97 04/15/19 08:33 Temperature 97.3 F L 04/15/19 08:33 Temperature Source Temporal Artery Scan 04/15/19 08:33 Pulse 72 04/15/19 08:33 Respiratory Rate 12 04/15/19 08:33 Respiratory Effort Non-Labored 04/15/19 08:35 Blood Pressure 121/74 04/15/19 08:33 Blood Pressure Position Sitting 04/15/19 08:33 Pulse Oximetry 97 04/15/19 08:33 Oxygen Delivery Method Room Air 04/15/19 08:33 Oxygen Flow Rate 0 04/15/19 08:33 Pain Level 0 04/15/19 08:33
== END 2019-04-15 08:52 | disposition home or self-care (01) ==
PROVIDERS: Emergency Provider Emergency Medicine; PCP Family Medicine
DX: H00.014 Hordeolum externum left upper eyelid (principal)
CPT/HCPCS: 99283

== ENCOUNTER 2019-05-07 20:36 | Emergency (ER) | payer OTHER, SELFPAY ==
[2019-05-07 20:42] VITALS: BP 146/98; PULSE 82; RESP 16; TEMP 37.2; O2SAT 97
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
--- NOTE | 2019-05-07 21:37 | DI.CT_ITS ---
EXAM: CT HEAD WO CT HEAD WO CLINICAL HISTORY: Headache. Headache TECHNIQUE: Imaging Protocol: Axial computed tomography images with coronal and sagittal reformatted images were created and reviewed COMPARISON: No exams were available for comparison FINDINGS: The ventricular system is normal in appearance. No evidence of acute intracranial hemorrhage, mass effect, or midline shift. The orbital structures are unremarkable. The temporal bone structures appear intact. Calvarium: Normal. Visualized Paranasal sinuses/Mastoids: Clear. IMPRESSION: Normal cranial CT. DATA REPOSITORY: All CT scans at this facility are submitted to the National Radiology Data Registry (NRDR) Dose Index Registry (DIR) with the [employer] (A[employer]). RADIATION OPTIMIZATION: All CT scans at this facility use at least one of these dose optimization te chniques: automated exposure control; mA and/or kV adjustment per patient size (includes targeted exa ms where dose is matched to clinical indication); or iterative reconstruction.
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
[2019-05-07 22:08] VITALS: BP 134/83; PULSE 82; RESP 16; O2SAT 97
== END 2019-05-07 22:10 | disposition home or self-care (01) ==
PROVIDERS: Emergency Provider Registered Nurse Emergency; PCP Family Medicine
DX: F07.81 Postconcussional syndrome (principal); G44.309 Post-traumatic headache, unspecified, not intractable; R11.0 Nausea; Z87.828 Personal history of other (healed) physical injury and trauma
CPT/HCPCS: 99284; 70450

== ENCOUNTER 2019-08-04 12:13 | Outpatient (CLI) | payer OTHER, SELFPAY ==
[2019-08-05 09:14] LABS: COVID-19 RT-PCR UVMMC Result Negative (Negative)
== END 2019-08-04 12:33 ==
PROVIDERS: PCP Family Medicine; Visit Provider Family Medicine
DX: R50.9 Fever, unspecified (principal)
CPT/HCPCS: U0003

== ENCOUNTER 2019-08-11 20:01 | Emergency (ER) | payer OTHER, SELFPAY ==
[2019-08-11 20:08] VITALS: BP 143/79; PULSE 71; RESP 16; TEMP 36.8; O2SAT 99
--- NOTE | 2019-08-11 20:24 | W.ED.GENAD ---
Discharge Plan Disposition Patient Disposition: HOME Condition: Good Discharge Details Chief Complaint: Headache Clinical Impression: Migraine headache Primary Care Provider: Sea Maravilla ED Provider: Sebastián Lucia [place] Meds and New Rx's Prescriptions: Continued [id number]-[id number]-[id number] 50-325-40 mg tablet 1 tab PO Q6H MDD No more than 4 tabs in 24 hr PRN (Reason: pain) Qty: 10 RF: 0 Discharge Instructions Additional Instructions: Home to get some rest/sleep. Drink plenty of fluids. Follow up with PCP as needed. Return to ED for severe, recurrent headache, neurological changes, mental status changes. Referrals: Sea Maravilla DO [Primary Care Provider] - Medical Decision Making Patient presenting with his typical migraine headache. He is afebrile. He has a normal neurologic exam. Unable to take anything because he was at work and now is having nausea vomiting. Will place IV and give fluids, ketorolac, metoclopramide, diphenhydramine and reevaluate. 21:45 -patient's headache is resolved. He feels remarkably better. He will be discharged home at this time. Follow-up with primary care as needed. Return to ED for recurrent severe headache, neurologic changes, altered mental status. Medical Records Medical records reviewed: Yes I reviewed the patient's medical records. HPI General Mode of arrival: ambulatory. Date/Time Provider Initiated Documentation: 08/11/19 20:07. Limitations to Documentation: no limitations. Information obtained by: patient and RN notes reviewed. HPI Narrative: Patient presents to ED with complaint of migraine headache which he has history of. Reports this started while at work. He was unable to take anything for it and now it has progressed to the point of nausea and vomiting. He has photophobia. He has no neurologic changes. Headache is typical for the migraines that he is used to. No fever, cough, shortness of breath, URI symptoms. Related Data Home Medications Medication Instructions Recorded Confirmed [id number]-pykjftdxuzcse-[id number] 1 tab PO Q6H PRN #10 tab MDD No 05/07/19 08/11/19 more than 4 tabs in 24 hr Previous Rx's Medication Instructions Recorded [id number]-[id number] 1 tab PO Q6H PRN #10 tab MDD No 05/07/19 more than 4 tabs in 24 hr Allergies Allergy/AdvReac Type Severity Reaction Status Date / Time codeine AdvReac Mild hyper Verified 08/11/19 20:10 General Stated Complaint: Headache IVON: 3 Review of Systems Narrative: As documented in HPI otherwise negative as below. Const: no fever, chills, weakness Resp: no cough, SOB, pleuritic pain CV: no CP, diaphoresis, edema, syncope GI: nausea and vomiting; no abdominal pain, diarrhea Neuro: headache; no numbness, focal weakness, confusion [facility] Medical History (Updated 08/11/19 @ 21:44 by Seabstián Lucia MD) Heart murmur (Chronic 01/15/12) innocent Migraine without aura and without status migrainosus, not intractable (Chronic 01/11/15) Hx migraines since 8yo, IMproved in recent years .. CUrrent H/A not migranous per se, but assoc neuralgia may be new symptoms for him .. Suggest Neuro to review/evaluate, especially as he may have migraines to some extent through life. Surgical History No significant past surgical history (Acute) Social History Smoking/Tobacco Use Status: Never Alcohol Intake: current Alcohol Intake frequency: holidays/special occasions only Drug use: Never Substance use type: does not use Household members: significant other Housing: apartment current occupation: [employer] Pets and animals: Yes Pets and animals: cat(s) Current gender identity: male What type of physical activity do you participate in: regular exercise Frequency: 3-4 times per week Do you feel safe at home: Yes Do you feel safe in your relationship?: Yes Exam Narrative Exam Narrative: Vitals: Afebrile. Elevated blood pressure but otherwise normal vitals and normal room air pulse ox. Const: WDWN male in NAD. HEENT: NC/AT. Normal facial exam. Eyes: Normal conjunctiva and sclera. PERRL and EOMI Neck: Supple. Trachea midline. Lungs: Normal respiratory effort. GI: Soft. NT/ND. No guarding or rebound. Neuro: A+O x 3. Normal speech, mentation, gait. Cranial nerves II - XII grossly intact. No gross motor or sensory deficit. Ext: No C/C/E. Skin: Warm and dry without rash. Course Vital Signs Vital signs: Vital Signs Temperature 98.3 F 08/11/19 20:08 Pulse 71 08/11/19 20:08 Respiratory Rate 16 08/11/19 20:08 Blood Pressure 143/79 H 08/11/19 20:08 Pulse Oximetry 99 08/11/19 20:08 Temperature 98.3 F 08/11/19 20:08 Temperature Source Skin 08/11/19 20:08 Pulse 71 08/11/19 20:08 Respiratory Rate 16 08/11/19 20:08 Respiratory Effort Non-Labored 08/11/19 20:11 Blood Pressure 143/79 H 08/11/19 20:08 Blood Pressure Position Sitting 08/11/19 20:08 Pulse Oximetry 99 08/11/19 20:08 Oxygen Delivery Method Room Air 08/11/19 20:08 Oxygen Flow Rate 0 08/11/19 20:08 Pain Level 7 08/11/19 20:08
[2019-08-11] MEDS: Lactated Ringers 1,000 ML 1000 ML IV (20:40)
[2019-08-11] MEDS: diphenhydrAMINE 50 MG/ML VIAL 25 MG IVP (20:40)
[2019-08-11] MEDS: Ketorolac 30 MG/ML VIAL IVP (20:41)
[2019-08-11] MEDS: Metoclopramide 10 MG/2 ML VIAL IVP (20:41)
== END 2019-08-11 21:55 | disposition home or self-care (01) ==
LOC: ER 23:58
PROVIDERS: Emergency Provider Emergency Medicine; PCP Family Medicine
DX: G43.009 Migraine without aura, not intractable, without status migrainosus (principal); R11.2 Nausea with vomiting, unspecified
CPT/HCPCS: 96361; 96374; 96375; 99284; J1200; J1885; J2765

== ENCOUNTER 2019-08-13 12:12 | Outpatient (CLI) | payer OTHER, SELFPAY ==
[2019-08-14 23:01] LABS: COVID-19 RT-PCR UVMMC Result Negative (Negative)
== END 2019-08-13 12:32 ==
PROVIDERS: PCP Family Medicine; Visit Provider Family Medicine
DX: R06.02 Shortness of breath (principal)
CPT/HCPCS: U0003

== ENCOUNTER 2019-10-17 11:58 | Emergency (ER) | payer OTHER, SELFPAY ==
[2019-10-17 12:02] VITALS: BP 122/79; PULSE 63; RESP 15; TEMP 36.9; O2SAT 97
--- NOTE | 2019-10-17 12:10 | ED.GENADUL_ITS ---
Discharge Plan Disposition Patient Disposition: HOME Condition: Good Discharge Details Chief Complaint: Orthopedic Clinical Impression: Cramp in muscle Primary Care Provider: Sea Maravilla ED Provider: Yumiko Lauren Home Meds and New Rx's Prescriptions: No Action No Known Home Meds RF: 0 Discharge Instructions Instructions: Muscle Cramp (ED) Additional Instructions: Please encourage water intake. You may also consider drinking sports drinks throughout the course the day as well. I am very concerned with your job, and this heat, that you are at high risk for dehydration and potential electrolyte abnormalities. These are reassuring today. Please follow-up with your primary care next week for reevaluation. If you develop any new or worsening symptoms please seek care urgently once again. Referrals: Sea Maravilla DO [Primary Care Provider] - Discharge Data Discharge Date/Time-TO BE ENTERED AT DEPARTURE: 10/17/19 13:20 Medical Decision Making Patient is a pleasant 19 year old male presenting today with c/c of right calf muscle spasm. He states that he has noted increased number of spasms recently. 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 He states that today, 1/2 hour prior ot arrival, he had a spontaneous muscle spasm. No trauma. Denies SOB, CP. States this lasted 2 minutes. He states that subsequently he had some tingling in his legs which has since been subsiding. Denies any fevers or chills. Is not noted muscle cramps elsewhere. No history of DVT, PE. No recent times of being sedentary. On exam, patient is resting comfortably. He is unremarkable right lower extremity exam. Brisk capillary refill, intact distal pulses, no evidence of DVT. Lungs are clear, normal cardiac exam. As patient is working outside and likely component of this is dehydration, I will obtain baseline labs. Patient is hydrating orally. Labs reviewed. No leukocytosis. H&H is stable. CMP without abnormality. Discussed these findings with the patient. Encourage hydration. We also discussed that he could use Gatorade or Pedialyte as well. Advise follow-up with primary care. All of his questions and concerns were addressed and is agreement this plan. HPI General Mode of arrival: ambulatory . Date/Time Provider Initiated Documentation: 10/17/19 12:10 . Limitations to Documentation: no limitations . Information obtained by: patient and RN notes reviewed . History of Present Illness 19 year old M presents to the emergency department with the chief complaint of RLE cramp, described as moderate, with intensity rated at 4. Quality is described as aching, and is localized to the right. Patient extremity. Patient started experiencing this minute(s) (30) and it has been now resolved. No relieving factors improve symptom(s), No exacerbating factors reported . Patient notes no other symptoms.; denies chest pain, cough, fever/chills, loss of appetite, nausea/vomiting, rash, shortness of breath and weakness. Patient did receive the following treatments prior to arrival, none Related Data Home Medications Medication Instructions Recorded Confirmed Unknown [No Known Home Meds] 10/17/19 10/17/19 Allergies Allergy/AdvReac Type Severity Reaction Status Date / Time codeine AdvReac Mild hyper Verified 10/17/19 12:07 General Stated Complaint: Orthopedic IVON: 4 Review of Systems Constitutional Constitutional: Reports as per HPI, Denies chills, Denies fever(s), Denies headache(s) and Denies weakness ENT Ears, Nose, Mouth, and Throat: Denies headache(s) Cardiovascular Cardiovascular: Reports as per HPI Respiratory Respiratory: Reports as per HPI and Denies cough Musculoskeletal Musculoskeletal: Reports as per HPI and Reports tingling (states he had tingling in RLE with spasm, improving) Integumentary/Breasts Skin/Breast: Reports as per HPI, Denies rash and Denies wounds Neurologic Neurologic: Reports as per HPI, Denies headache(s), Reports tingling (states he had tingling in RLE with spasm, improving) and Denies weakness [facility] Medical History Heart murmur (Chronic 01/15/12) innocent Migraine without aura and without status migrainosus, not intractable (Chronic 01/11/15) Hx migraines since 8yo, IMproved in recent years .. CUrrent H/A not migranous per se, but assoc neuralgia may be new symptoms for him .. Suggest Neuro to review/evaluate, especially as he may have migraines to some extent through life. Social History Smoking/Tobacco Use Status: Never Alcohol Intake: current Alcohol Intake frequency: holidays/special occasions only Drug use: Never Substance use type: does not use Household members: significant other Housing: apartment current occupation: [employer] Pets and animals: Yes Pets and animals: cat(s) Current gender identity: male What type of physical activity do you participate in: regular exercise Frequency: 3-4 times per week Do you feel safe at home: Yes Do you feel safe in your relationship?: Yes Exam Const General: cooperative, healthy appearing, comfortable, no acute distress, well developed and well groomed Nutritional Appearance: average body habitus and well nourished Orientation: alert and awake Resp Effort & Inspection: normal respiratory effort, able to speak in complete sentences and no respiratory distress Cardio Rate: regular rate Rhythm: regular rhythm Skin General skin exam: no rashes or lesions noted Lesions: no lesions Rashes: no rashes Trauma: no lacerations or abrasions Wounds: no wounds Hair: normal Neuro General: patient alert and patient awake Cognition: normal cognition Speech: speech normal Gait: normal gait Motor: muscle tone normal throughout Sensory Exam: no sensory deficits noted Extrem Right lower extremity: normal to inspection, full ROM, no joint enlargement, knee Details: normal to inspection and normal ROM; no tenderness, no swelling, no ecchymosis, no crepitus and no unusual warmth, lower leg Details: normal to inspection and no edema; no tenderness, no localized swelling, no palpable cords, no abrasions, no lacerations, no ecchymosis and no crepitus, ankle Details: normal to inspection, no edema and normal ROM; no tenderness, no swelling, no ecchymosis, no crepitus and achilles tendon exam normal and foot De tails: normal capillary refill and vascular exam Details: dorsalis pedis pulse present, posterior tibial pulse present and normal capillary refill Psych Appearance: grossly normal and well kempt Mental Status: mental status grossly normal Speech and Movement: speech and movement normal Course Vital Signs Vital signs: Vital Signs Temperature 36.9 C 10/17/19 12:02 Pulse 63 10/17/19 12:02 Respiratory Rate 15 10/17/19 12:02 Blood Pressure 122/79 10/17/19 12:02 Pulse Oximetry 97 10/17/19 12:02 Temperature 36.9 C 10/17/19 12:02 Temperature Source Temporal Artery Scan 10/17/19 12:02 Pulse 63 10/17/19 12:02 Respiratory Rate 15 10/17/19 12:02 Respiratory Effort Non-Labored 10/17/19 12:06 Blood Pressure 122/79 10/17/19 12:02 Pulse Oximetry 97 10/17/19 12:02 Oxygen Delivery Method Room Air 10/17/19 12:02 Oxygen Flow Rate 0 10/17/19 12:02 Pain Level 4 10/17/19 12:02
[2019-10-17 12:34] LABS: HCT 42.4 % (40.0-50.0); HGB 15.2 g/dL (13.5-17.5); Mean Corp. HGB Concentration 35.8 g/dL (32.0-36.0); Mean Corpuscular Hemoglobin 31.4 pg (27.0-33.0); Mean Corpuscular Volume 87.6 fL (80-95); Mean Platelet Volume 9.3 fL (8.0-11.0); Platelet Count 262 x1000/uL (130-400); RBC 4.84 m/cumm (4.50-6.00); RBC Distribution Width 11.6 % (11.8-14.1); White Blood Cell Count 4.56 k/cumm (4.4-10.8)
[2019-10-17 12:48] LABS: ALT 28 U/L (16-63); AST 12 U/L (15-37); Albumin 4.2 g/dL (3.4-5.0); Alkaline Phosphatase 54 U/L (46-116); BUN 10 mg/dL (7-18); Bilirubin, Total 0.9 mg/dL (0.2-1.0); CREATININE 0.87 mg/dL (0.70-1.30); Calcium 8.6 mg/dL (8.5-10.1); Chloride 104 mmol/L (98-107); Glucose 100 mg/dL (74-106); Sodium 138 mmol/L (136-145); Total Protein 7.2 g/dL (6.4-8.2)
== END 2019-10-17 13:20 | disposition home or self-care (01) ==
PROVIDERS: Emergency Provider Physician Assistant; PCP Family Medicine
DX: M62.831 Muscle spasm of calf (principal); R20.2 Paresthesia of skin
CPT/HCPCS: 36415; 80053; 85027; 99283

== ENCOUNTER 2020-03-01 06:47 | Emergency (ER) | payer OTHER, SELFPAY ==
[2020-03-01] VITALS (9 sets, daily range): BP systolic 129–141; BP diastolic 70–102; PULSE 81–102; RESP 12–18; TEMP 36.7; O2SAT 93–100
--- NOTE | 2020-03-01 06:45 | RT.EKG_ITS ---
APPROVED REPORT Exam: Resting ECG Patient Location: E HR:84 bpm ECG Measurements Heart Rate 84 AXIS AL 141 P 62 QRSd 92 QRS 83 QT 350 T 40 QTc 415 Conclusion Sinus arrhythmia...V-rate 71- 97, variation>10%
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
[2020-03-01] MEDS: Ibuprofen 600 MG TAB PO (07:16)
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
== END 2020-03-01 07:46 | disposition home or self-care (01) ==
LOC: ER 07:21
PROVIDERS: Emergency Provider Emergency Medicine; PCP Family Medicine
DX: S20.211A Contusion of right front wall of thorax, initial encounter (principal); S69.92XA Unspecified injury of left wrist, hand and finger(s), initial encounter; V47.6XXA Car passenger injured in collision with fixed or stationary object in traffic accident, initial encounter
CPT/HCPCS: 36415; 93005; 99285; 71045; 93010; 99284

== ENCOUNTER 2020-08-05 05:07 | Emergency (ER) | payer OTHER, SELFPAY ==
--- NOTE | 2020-08-05 05:09 | ED.GENADUL_ITS ---
Discharge Plan Disposition Patient Disposition: HOME Condition: Good Discharge Details Clinical Impression: Headache, migraine Primary Care Provider: Sea Maravilla ED Provider: Sebastián Lucia [place] Meds and New Rx's Prescriptions: New prochlorperazine maleate 10 mg tablet 10 mg PO Q6H PRN (Reason: migraine headache) Qty: 10 RF: 0 Changed ibuprofen 200 mg capsule 400 mg PO Q6H PRNQty: 0 RF: 0 Discharge Instructions Additional Instructions: Avoid taking too much Advil. Try the Compazine for recurrent migraines. Rest a nd hydrate today. Follow up with PCP next week if continued headaches. Return to ED for severe/different headache, neurological changes, vomiting. Referrals: Sea Maravilla DO [Primary Care Provider] - Medical Decision Making Patient presenting with migraine headache for last 5 days. Headache same as previous migraines. Has been using Advil without relief. Neuro exam is normal. Will place IV and give saline and Compazine. Check BMP given large amounts of Advil patient states he has been taking. 6:00 am - Resolution of headache with Compazine. BMP is fine. Discussed risk of too much Advil. Will prescribe Compazine for recurrent migraine. Follow up with PCP. Return to ED if neuro changes, worsening headache, vomiting. Medical Records Medical records reviewed: Yes I reviewed the patient's medical records. Lab Data Lab results reviewed: Yes I reviewed the patient's lab results. HPI General Mode of arrival: ambulatory . Date/Time Provider Initiated Documentation: 08/05/20 05:08 . Limitations to Documentation: no limitations . Information obtained by: patient, RN notes reviewed and old records reviewed . HPI Narrative: Patient presents to ED with migraine headache. Has history of same since child. This headache no different than previous but will not resolve after 5 days. Has been taking Advil every 4 hours to function. No neurological changes. Nausea but no vomiting. Does not feel able to go to work this morning due to headache and nausea so came here. Related Data Home Medications Medication Instructions Recorded Confirmed ibuprofen 400 mg PO Q6H PRN #0 cap 08/05/20 03/07/20 prochlorperazine maleate 10 mg PO Q6H PRN #10 tab 08/05/20 Previous Rx's Medication Instructions Recorded ibuprofen 400 mg PO Q6H PRN #0 cap 08/05/20 prochlorperazine maleate 10 mg PO Q6H PRN #10 tab 08/05/20 Allergies Allergy/AdvReac Type Severity Reaction Status Date / Time codeine AdvReac Mild hyper Verified 03/07/20 15:31 General IVON: 2 Review of Systems Constitutional Constitutional: Denies fever(s), Reports headache(s) and Denies weakness ENT Ears, Nose, Mouth, and Throat: Denies dizziness, Reports headache(s) and Denies disequilibrium Cardiovascular Cardiovascular: Denies chest pain and Denies dyspnea Respiratory Respiratory: Denies cough and Denies dyspnea Gastrointestinal Gastrointestinal: Denies abdominal pain, Reports nausea and Denies vomiting Musculoskeletal Musculoskeletal: Denies numbness Neurologic Neurologic: Denies abnormal speech, Denies confusion, Denies dizziness, Reports headache(s), Denies numbness, Denies disequilibrium and Denies weakness Psychiatric Psychiatric: Denies confusion [facility] Medical History (Updated 08/05/20 @ 06:03 by Sebastián Lucia MD) Heart murmur (01/15/12) innocent Migraine without aura and without status migrainosus, not intractable (01/11/15) Hx migraines since 8yo, IMproved in recent years .. CUrrent H/A not migranous per se, but assoc neuralgia may be new symptoms for him .. Suggest Neuro to review/evaluate, especially as he may have migraines to some extent through life. Surgical History No significant past surgical history Family History Mother Essential hypertension Sister Age: 10 No problems noted. Father No problems noted. Other Diabetes MGGF Essential hypertension MGM Social History Smoking/Tobacco Use Status: Never Smoking risk assessment performed?: Yes Alcohol Intake: current Alcohol Intake frequency: holidays/special occasions only Drug use: Never Substance use type: does not use Household members: significant other Housing: apartment current occupation: [employer] Pets and animals: Yes Pets and animals: cat(s) Current gender identity: male What type of physical activity do you participate in: regular exercise Frequency: 3-4 times per week Do you feel safe at home: Yes Do you feel safe in your relationship?: Yes Exam Narrative Exam Narrative: Const: WDWN male in NAD. HEENT: NC/AT. Normal facial exam. Eyes: PERRL and EOMI Neck: Supple. Trachea midline. Lungs: Normal respiratory effort. Neuro: A+O x 3. Normal speech, mentation, gait. Cranial nerves II - XII grossly intact. No gross motor or sensory deficit. Ext: No C/C/E. Skin: Warm and dry without rash.
[2020-08-05 05:10] VITALS: BP 133/64; PULSE 61; RESP 18; TEMP 36; O2SAT 98
[2020-08-05] MEDS: Prochlorperazine 10 MG/2 ML VIAL IVP (05:31)
[2020-08-05] MEDS: Normal Saline 1,000 ML 1000 ML IV (05:31)
[2020-08-05 05:38] LABS: Anion Gap 2.8 mmol/L (3-11); BUN 12 mg/dL (7-18); CO2 26.2 mmol/L (21.0-32.0); CREATININE 0.8 mg/dL (0.70-1.30); Calcium 8.5 mg/dL (8.5-10.1); Chloride 105 mmol/L (98-107); Glucose 96 mg/dL (74-106); Potassium 3.8 mmol/L (3.5-5.1); Sodium 134 mmol/L (136-145)
[2020-08-05 06:16] VITALS: BP 132/70; PULSE 94; RESP 16; O2SAT 100
== END 2020-08-05 06:19 | disposition home or self-care (01) ==
PROVIDERS: Emergency Provider Emergency Medicine; PCP Family Medicine
DX: G43.809 Other migraine, not intractable, without status migrainosus (principal)
CPT/HCPCS: 80048; 96361; 96374; 99284; 99283; J0780

== ENCOUNTER 2022-07-21 10:26 | Emergency (ER) | payer OTHER, SELFPAY ==
[2022-07-21 10:31] VITALS: BP 125/82; PULSE 76; RESP 16; TEMP 36.6; O2SAT 98
--- NOTE | 2022-07-21 10:45 | DI.CT_ITS ---
Exam(s) CT RENAL COLIC WO EXAM: CT RENAL COLIC WO CLINICAL HISTORY: right flank pain. TECHNIQUE: Imaging Protocol: Axial computed tomography images with coronal and sagittal reformatted images were created and reviewed CONTRAST MATERIAL: Intravenous: none Oral: None COMPARISON: No exams were available for comparison FINDINGS: VISUALIZED LUNG BASES: No nodules nor pleural effusions evident. ABDOMEN: There is no ascites. LIVER: There are no obvious focal hepatic lesions evident of this noninfused study. GALLBLADDER/BILIARY: No obvious gallbladder pathology. CBD is not dilated. PANCREAS: No evidence of pancreatic mass nor dilatation of the pancreatic duct. SPLEEN: Spleen is not enlarged. No obvious intrasplenic lesions. ADRENALS: Right adrenal gland unremarkable. There is focal thickening of the genu of the left adrena l gland. KIDNEYS:Both normal size. No cysts nor masses. No radiopaque calculi. No hydronephrosis. No calcu li in the nondistended urinary bladder no solid renal masses.. ABDOMINAL AORTA: Abdominal aorta is not enlarged. LYMPH NODES: There is no retroperitoneal nor paraaortic adenopathy. ABDOMINAL WALL: Fat only containing midline umbilical hernia. No inguinal hernias. GI: There is no evidence of bowel obstruction, free air, nor abscess. PELVIS: LYMPH NODES: There is no intrapelvic nor inguinal adenopathy. GI: No evidence of appendicitis.No evidence of sigmoid diverticulitis. URINARY BLADDER: No calculi nor obvious masses evident REPRODUCTIVE: Prostate and seminal vesicles unremarkable. OSSEOUS: No fractures nor osseous lesions. Bilateral pars defects at L5 with mild anterolisthesis L5 upon S1. IMPRESSION: 1. No radiopaque calculi identified. No true hydronephrosis. No calculi in the urinary bladder seen . 2. Bilateral L5 pars defects. Mild anterolisthesis of L5 upon S1. RADIATION DOSE DELIVERED: 640.18 mGy.cm Total DLP DATA REPOSITORY: All CT scans at this facility are submitted to the National Radiology Data Registry (NRDR) Dose Index Registry (DIR) with the [employer] (ACR). RADIATION OPTIMIZATION: All CT scans at this facility use at least one of these dose optimization te chniques: automated exposure control; mA and/or kV adjustment per patient size (includes targeted exa ms where dose is matched to clinical indication); or iterative reconstruction.
--- NOTE | 2022-07-21 10:49 | DI.CT_ITS ---
Exam(s) CT LUMBAR SPINE RECONS EXAM: CT LUMBAR SPINE RECONS CLINICAL HISTORY: lumbar spine, lower back pain. TECHNIQUE: Imaging Protocol: Axial computed tomography images with coronal and sagittal reformatted images were created and reviewed COMPARISON: CT CT RENAL COLIC WO from 07/21/2022 FINDINGS: Bones: No evidence compression fractures. There are bilateral pars defects at L5 with mild anteroli sthesis L5 upon S1.. Annular bulging at this level also noted. No central canal stenosis. No promi nent foraminal stenosis. There are no lytic osseous lesions evident. PARASPINAL SOFT TISSUES: Visualized paraspinal tissues appear unremarkable. IMPRESSION: 1. As above. Recommend follow-up MRI. 2. 3. RADIATION DOSE DELIVERED: Total DLP DATA REPOSITORY: All CT scans at this facility are submitted to the National Radiology Data Registry (NRDR) Dose Index Registry (DIR) with the [employer] (ACR). RADIATION OPTIMIZATION: All CT scans at this facility use at least one of these dose optimization te chniques: automated exposure control; mA and/or kV adjustment per patient size (includes targeted exa ms where dose is matched to clinical indication); or iterative reconstruction.
--- NOTE | 2022-07-21 10:49 | ED.GENADUL_ITS ---
Discharge Plan Disposition Patient Disposition: Home Condition: Stable Discharge Details Clinical Impression: Left low back pain Primary Care Provider: Sea Maravilla ED Provider: Beau Degroot Home Meds and New Rx's Prescriptions: New cephalexin 500 mg tablet 500 mg PO QID Qty: 28 0RF Continued venlafaxine 75 mg tablet 75 mg PO DAILY Qty: 60 0RF Patient Comments: patient never started Rx Instructions: Start at 0.5 tabs qd, can increase to 1 tab after 3 days if tolerated ibuprofen 200 mg capsule 400 mg PO Q6H PRNQty: 0 0RF Discharge Instructions Additional Instructions: You had evidence that you likely passed small kidney stone you can continue ibuprofen as needed as well as tylenol, follow dosing instructions on packaging if you feel more ill, have severe worsening pain or fevers return to the emergency department follow up with your primary care provider within 1 week if your symptoms continue Medical Decision Making 22 yo male with no significant pmhx comes in with 2 weeks of intermittent right lower back pain and intermittent pain with urination. He denies any trauma or falls, denies any fevers, chills, abdomen pain, n/v, no testicle pain or swelling. No urethral discharge, no hematuria he has noticed. HE denies ivdu. HE arrives stable and appears well on exam, localizes the pain to the right lower lumbar region. No saddle anesthesia, normal distal sensation and pulses, no erythema or warmth of the back and no abdominal tenderness. Suspect musculoskeletal back pain but given the urinary symptoms will obtain ua and evaluate for possible kidney stone with renal colic ct and obtain recons of the lumbar spine. He has no findings on history or exam to suggest cauda equina or spinal epidural abscess. lumbar spine recons show age indeterminate left l5-s1 disc herniation, ct renal colic shows mild asymmetric enlargement of the right renal collecting system which could be from a recently passed stone, pt doesn't remember passing a stone but does state he had pain with urination this morning. He does have leuks and mild bacteria, will treat as potential uti,he is stable for d/c, advised to f/u with pcp if not improving this week and return precautions given Differential Diagnosis Differential Diagnosis: back strain, kidney stone, disc hernation, uti Imaging Data Radiologic Study: Attestation: I personally reviewed and interpreted this imaging study as follows: Imaging: CT Scan Radiologist's impression: IMPRESSION: Age-indeterminate left L5-S1 disc herniation Radiologic Study #2: Attestation: I personally reviewed and interpreted this imaging study as follows: Imaging: CT Scan Radiologist's impression: IMPRESSION: Mild asymmetric enlargement of the right renal collecting system. No calcifications. Could the patient passed a stone? HPI General Mode of arrival: ambulatory . Date/Time Provider Initiated Documentation: 07/21/22 10:27 . Limitations to Documentation: no limitations . Information obtained by: patient . History of Present Illness 22 year old M presents to the emergency department with the chief complaint of lower back pain, described as moderate, Patient started experiencing this week(s) (2) and it has been constant. No relieving factors improve symptom(s), No exacerbating factors reported . Patient notes denies fever/chills. Patient did receive the following treatments prior to arrival, NSAID Related Data Home Medications Medication Instructions Recorded Confirmed ibuprofen 200 mg capsule 400 mg PO Q6H PRN #0 caps 08/05/20 07/21/22 venlafaxine 75 mg tablet 75 mg PO DAILY #60 tabs 02/28/21 02/28/21 cephalexin 500 mg tablet 500 mg PO QID #28 tabs 07/21/22 Previous Rx's Medication Instructions Recorded ibuprofen 200 mg capsule 400 mg PO Q6H PRN #0 caps 08/05/20 venlafaxine 75 mg tablet 75 mg PO DAILY #60 tabs 02/28/21 cephalexin 500 mg tablet 500 mg PO QID #28 tabs 07/21/22 Allergies Allergy/AdvReac Type Severity Reaction Status Date / Time codeine AdvReac Mild hyper Verified 07/21/22 10:35 General Stated Complaint: FlankPain IVON: 3 Review of Systems All systems reviewed & are unremarkable except as noted in HPI and below Constitutional Constitutional: Denies chills, Denies fever(s) and Denies weakness Cardiovascular Cardiovascular: Denies chest pain and Denies dyspnea Respiratory Respiratory: Denies cough and Denies dyspnea Gastrointestinal Gastrointestinal: Denies abdominal pain and Denies vomiting Genitourinary Genitourinary: Denies hematuria Integumentary/Breasts Skin/Breast: Denies rash Neurologic Neurologic: Denies weakness PFSH All Active Problems (Updated 07/21/22 @ 12:34 by Beau Degroot MD) Left low back pain (Acute) Headache, migraine (Chronic) No significant past surgical history (Acute) Post concussion syndrome (Acute) Mild concussion (Acute) Cellulitis of face (Acute 01/15/12) Migraine without aura and without status migrainosus, not intractable (Chronic 01/11/15) Hx migraines since 8yo, IMproved in recent years .. CUrrent H/A not migranous per se, but assoc neuralgia may be new symptoms for him .. Suggest Neuro to review/evaluate, especially as he may have migraines to some extent through life. Heart murmur (Chronic 01/15/12) innocent Family History Mother Essential hypertension Sister Age: 12 No problems noted. Father No problems noted. Other Diabetes MGGF Essential hypertension MGM Social History Smoking/Tobacco Use Status: Never Smoking risk assessment performed?: Yes Alcohol Intake: current Alcohol Intake frequency: holidays/special occasions only Alcohol type: beer and hard liquor Drug use: Never Substance use type: does not use Household members: significant other Housing: apartment current occupation: [employer] Pets and animals: Yes Pets and animals: cat(s) Current gender identity: male What type of physical activity do you participate in: regular exercise Frequency: 3-4 times per week Do you feel safe at home: Yes Do you feel safe in your relationship?: Yes Exam Const General: no acute distress Orientation: alert HENMT Head: normal to inspection Ears: external ears normal General nose exam: external nose normal Mouth: moist mucous membranes Eyes General: appearance normal, both eyes and all related structures Neck Neck: normal visual inspection Resp Effort & Inspection: normal respiratory effort and able to speak in complete sentences Cardio Rate: regular rate GI Palpation: soft and nontender Back/Spine/Pelvis Back: no CVA tenderness Skin General skin exam: no rashes or lesions noted Neuro General: patient alert and patient oriented x3 Extrem General: normal to inspection Psych Mental Status: mental status grossly normal Course Vital Signs Vital signs: Vital Signs Temperature 36.6 C 07/21/22 10:31 Pulse 76 07/21/22 10:31 Respiratory Rate 16 07/21/22 10:31 Blood Pressure 125/82 07/21/22 10:31 Pulse Oximetry 98 07/21/22 10:31 Temperature 36.6 C 07/21/22 10:31 Temperature Source Skin 07/21/22 10:31 Pulse 76 07/21/22 10:31 Respiratory Rate 16 07/21/22 10:31 Respiratory Effort Normal, Non-Labored 07/21/22 10:44 Blood Pressure 125/82 07/21/22 10:31 Blood Pressure Position Sitting 07/21/22 10:31 Pulse Oximetry 98 07/21/22 10:31 Oxygen Delivery Method Room Air 07/21/22 10:31 Oxygen Flow Rate 0 07/21/22 10:31 Pain Level 6 07/21/22 10:44 PAWSS Have you Been Recently Intoxicated or Drunk Within the Last 30 days?: Yes Have you Ever Experienced Previous Episodes of Alcohol Withdrawal?: No Have you ever Experienced Withdrawal Seizures?: No Have you ever Experienced Delirium Tremens(DT)s?: No Have you ever undergone Alcohol Rehabilitation Treatment (i.e, inpt ot outpatient treatment programs)?: No Have you ever Experienced Blackouts?: No Have you ever Combined Alcohol with other Downers within the last 90 days?: No Have you ever Combined Alcohol with any other Substance of Abuse during the last 90 days?: No Positive Blood Alcohol level on Presentation? [PCS.BAL]: No Evidence of Increased Autonomic Activity (i.e. HR>120, tremor, sweating, latha tation, nausea)?: No Result: 1
[2022-07-21] MEDS: Normal Saline 1,000 ML 1000 ML IV (11:10)
[2022-07-21 11:16] LABS: Abs Immature Grans 0.01 10^3/uL (0.0-0.06); Absolute Basophil Count 0.03 10^3/uL (0.0-0.2); Absolute Eosinophil Count 0.04 10^3/uL (0.0-0.7); Absolute Lymphocyte Count 1.92 10^3/uL (1.2-3.4); Absolute Neutrophil Count 3.33 10^3/uL (1.2-6.7); Basophils % 0.5; Eosinophils % 0.7; HCT 45.8 % (40.0-50.0); HGB 16.2 g/dL (13.5-17.5); Immature Grans % 0.2; Lymphocytes % 33.5; MCH 31.2 pg (27.0-33.0); MCHC 35.4 % (32.0-36.0); MCV 88 fL (80-95); MPV 9.2 fL (8.0-11.0); Neutrophils % 58.1; Platelet Count 258 10^3/uL (130-400); RBC 5.19 10^6/uL (4.36-5.78); RDW 11.1 % (11.8-14.1); RDW-SD 35.6 fL; WBC 5.73 10^3/uL (4.4-10.8)
[2022-07-21] MEDS: Ketorolac 15 MG/ML VIAL IVP (11:20)
[2022-07-21 11:32] LABS: ALT 51 U/L (16-63); AST 19 U/L (15-37); Albumin 4.4 g/dL (3.4-5.0); Alkaline Phosphatase 64 U/L (46-116); Anion Gap 6.5 mmol/L (3-11); BUN 10 mg/dL (7-18); Bilirubin, Total 0.7 mg/dL (0.2-1.0); CO2 28.5 mmol/L (21.0-32.0); CREATININE 0.9 mg/dL (0.70-1.30); Calcium 9.3 mg/dL (8.5-10.1); Chloride 106 mmol/L (98-107); Estimated GFR 122.31 (mL/min/1.73m2); Glucose 94 mg/dL (74-106); Lipase 29 U/L (16-77); Potassium 3.9 mmol/L (3.5-5.1); Sodium 141 mmol/L (136-145); Total Protein 7.8 g/dL (6.4-8.2)
--- NOTE | 2022-07-21 12:03 | DI.VRAD_ITS ---
PROCEDURE INFORMATION: Exam: CT Abdomen And Pelvis Without Contrast Exam date and time: 07/21/2022 11:42 AM Age: 22 years old Clinical indication: Other: Right flank pain TECHNIQUE: Imaging protocol: Computed tomography of the abdomen and pelvis without contrast. COMPARISON: CR XR PORTABLE CHEST AP 03/01/2020 7:10 AM FINDINGS: Liver: Unremarkable. No mass, cysts or dilated bile ducts. Gallbladder and bile ducts: Normal. No calcified stones. No ductal dilation. Pancreas: Normal. No ductal dilation. Spleen: Normal. No splenomegaly. Adrenal glands: The adrenal glands are normal. Kidneys and ureters: The kidneys are normal in position. The cortices are normal in thickness. No nephrolithiasis. Right renal collecting system is slightly larger than the left side. No calcified stones in the ureters. Stomach and bowel: Unremarkable. No obstruction. No mucosal thickening. Appendix: A normal appendix is identified. Intraperitoneal space: Unremarkable. No free air. No significant fluid collection. Vasculature: Unremarkable. No abdominal aortic aneurysm. Lymph nodes: Unremarkable. No enlarged lymph nodes. Urinary bladder: Unremarkable as visualized. Reproductive: Unremarkable as visualized. Bones/joints: Unremarkable. No acute fracture. Soft tissues: Unremarkable. IMPRESSION: Mild asymmetric enlargement of the right renal collecting system. No calcifications. Could the patient passed a stone? Dictated and Authenticated by: Desean Rahman MD. Ordering:FAB Yanez MD
--- NOTE | 2022-07-21 12:14 | DI.VRAD_ITS ---
PROCEDURE INFORMATION: Exam: CT Lumbar Spine Without Contrast Exam date and time: 07/21/2022 11:42 AM Age: 22 years old Clinical indication: Low back pain TECHNIQUE: Imaging protocol: Computed tomography of the lumbar spine without contrast. COMPARISON: No relevant prior studies available. FINDINGS: Bones/joints: No acute fracture. Normal alignment. L1-L2: No significant disc bulge or herniation. No severe spinal canal stenosis. No significant neural foraminal narrowing. L2-L3: No significant disc bulge or herniation. No severe spinal canal stenosis. No significant neural foraminal narrowing. L3-L4: No significant disc bulge or herniation. No severe spinal canal stenosis. No significant neural foraminal narrowing. L4-L5: No significant disc bulge or herniation. No severe spinal canal stenosis. No significant neural foraminal narrowing. L5-S1: Age-indeterminate central to left foraminal disc herniation. No severe spinal canal stenosis. Mild left neural foraminal narrowing. Soft tissues: Unremarkable. IMPRESSION: Age-indeterminate left L5-S1 disc herniation. Dictated and Authenticated by: Desean Rahman MD. Ordering:FAB Yanez MD
[2022-07-21 12:28] LABS: Bilirubin Negative (Negative); Blood Negative (Negative); Clarity Clear (Clear); Glucose Negative (Negative); Ketones Negative (Negative); Leukocyte Esterase Negative (Negative); Nitrite Negative (Negative); Specific Gravity 1.015 (1.005-1.025); Urobilinogen 0.2 mg/dL (Up to 0.2)
[2022-07-21 12:41] VITALS: BP 127/74; PULSE 72; RESP 18; TEMP 37.4; O2SAT 96
== END 2022-07-21 12:45 | disposition home or self-care (01) ==
PROVIDERS: Emergency Provider Emergency Medicine; PCP Family Medicine
DX: M54.50 Low back pain, unspecified (principal); R30.9 Painful micturition, unspecified; M51.26 Other intervertebral disc displacement, lumbar region
CPT/HCPCS: 36415; 80053; 83690; 96361; 96374; 99284; 74176; 81003; 83735; 85025; J1885

== ENCOUNTER 2024-04-08 06:51 | Emergency (ER) | payer OTHER, SELFPAY ==
[2024-04-08 06:53] VITALS: BP 132/82; PULSE 81; RESP 18; TEMP 36.6; O2SAT 98
--- NOTE | 2024-04-08 07:36 | W.ED.GENAD ---
Discharge Plan Disposition Patient Disposition: Home Condition: Good Discharge Details Clinical Impression: Pain, dental Primary Care Provider: Sea Maravilla ED Provider: Audi Kasper Home Meds and New Rx's Prescriptions: New amoxicillin-pot clavulanate 875-125 mg tablet 1 tab PO BID Qty: 14 0RF Discharge Instructions Instructions: Dental Pain ED Additional Instructions: Please take 800 mg of ibuprofen every 6 hours and 1000 mg of Tylenol every 6 hours to help with the inflammation and pain. These are the maximum doses. Please take the antibiotic as directed to help with the infection in your tooth. Please follow-up closely with your dentist. If you notice any worsening of your symptoms, or any new symptoms such as difficulty swallowing, difficulty breathing, vomiting, diarrhea, fever, chills, shortness of breath, chest pain, numbness, weakness, or fainting , please return immediately to the emergency department for reevaluation. Please follow up with your primary care provider as soon as possible for reassessment and reevaluation. As always, it was a pleasure participating in your medical care today. Referrals: Sea Maravilla DO [Primary Care Provider] - [facility] General Date/Time Provider Initiated Documentation: 04/08/24 07:04. HPI Narrative: 23-year-old male with recent right lower dental feeling performed 2 weeks ago presents today for right lower dental pain. Patient states that few days after the filling he developed a mild ache in the right lower area of his jaw where the feeling had been placed. He has been taking Tylenol and Motrin to help manage this. About 3 days ago the pain became significantly worse, he contacted his dentist who was able to schedule an appointment tomorrow which was limited secondary to the holiday which is currently happening. Patient presents this morning for evaluation for potential infection. Patient denies any fever or chills. He states that Tylenol and Motrin has been managing his pain well, he is only been taking 400 mg of Motrin and an occasional Tylenol. He denies any other complaints at this time. He is not on any antibiotics. No other modifying factors. He denies swelling drainage or discharge. Related Data Home Medications ?Medication ?Instructions ?Recorded ?Confirmed amoxicillin 875 mg-potassium 1 tab PO BID #14 tabs 04/08/24 clavulanate 125 mg tablet Previous Rx's ?Medication ?Instructions ?Recorded amoxicillin 875 mg-potassium 1 tab PO BID #14 tabs 04/08/24 clavulanate 125 mg tablet Allergies Allergy/AdvReac Type Severity Reaction Status Date / Time codeine AdvReac Mild hyper Verified 04/08/24 06:56 General Stated Complaint: DentalOral IVON: 4 Exam Narrative Exam Narrative: 1.Const: Well-nourished, Well-developed, appearing stated age 2.Eyes: PERRL, no conjunctival injection, and symmetrical lids. 3.ENT: Atraumatic external nose and ears. Moist MM. Neck: Symmetric, trachea midline, No thyromegaly. No periapical abscess or swelling. No swelling in the posterior oropharynx. No evidence of Ludewig's angina. 4.CVS: +S1/S2, Peripheral pulses 2+ and equal in all extremities. Brisk capillary refill in all extremities. 5.RESP: Unlabored respiratory effort. Clear to auscultation bilaterally. No wheezes rales or rhonchi 6.GI: Soft, Nontender/Nondistended, No hepatosplenomegaly. No guarding or rebound. 7.MSK: Normocephalic/Atraumatic, Extremities w/o deformity or ttp No cyanosis or clubbing, Normal movement of all extremities 8.Skin: Warm, Dry. No rashes or lesions. 9.Neuro: bush regenerator II-XII grossly intact. Sensation grossly intact, no focal neurologic deficits. 10.Psych: (AAO) x3. Appropriate mood and affect Course Vital Signs Vital signs: Vital Signs Temperature 36.6 C 04/08/24 06:53 Pulse 81 04/08/24 06:53 Respiratory Rate 18 04/08/24 06:53 Blood Pressure 132/82 04/08/24 06:53 Pulse Oximetry 98 04/08/24 06:53 Temperature 36.6 C 04/08/24 06:53 Temperature Source Temporal Artery Scan 04/08/24 06:53 Pulse 81 04/08/24 06:53 Respiratory Rate 18 04/08/24 06:53 Blood Pressure 132/82 04/08/24 06:53 Blood Pressure Position Sitting 04/08/24 06:53 Pulse Oximetry 98 04/08/24 06:53 Oxygen Delivery Method Room Air 04/08/24 06:53 Oxygen Flow Rate 0 04/08/24 06:53 Pain Level 3 04/08/24 06:53 Medical Decision Making 23-year-old male with recent right lower dental feeling performed 2 weeks ago presents today for right lower dental pain. Patient states that few days after the filling he developed a mild ache in the right lower area of his jaw where the feeling had been placed. He has been taking Tylenol and Motrin to help manage this. About 3 days ago the pain became significantly worse, he contacted his dentist who was able to schedule an appointment tomorrow which was limited secondary to the holiday which is currently happening. Patient presents this morning for evaluation for potential infection. Patient denies any fever or chills. He states that Tylenol and Motrin has been managing his pain well, he is only been taking 400 mg of Motrin and an occasional Tylenol. He denies any other complaints at this time. He is not on any antibiotics. No other modifying factors. He denies swelling drainage or discharge. Exam demonstrates well-appearing male, stable vital signs, no swelling in the face or in the periapical aspect. No evidence of Ludewig's angina or other life-threatening etiology. Patient's pain appears to be well-managed at this time with NSAID therapy. Suspect either mild pulpitis, small postoperative intra dental infection, or just postoperative nerve pain secondary to inflammation. Out of an abundance of precaution, we will start the patient on antibiotic therapy. The dose will be given here, prescription for home. Will recommend continued NSAID therapy. Patient has declined dental block at this time as the pain is well-managed. Patient will be following up closely with his dentist. Discussed red flags which to return. I have extensively reviewed the treatment plan and discharge instructions with the patient and their family. I have addressed all patient concerns at this time. The patient and family was made aware of what symptoms to monitor for that would warrant a return to the emergency department. Discussed the plan with the patient and family, they demonstrate verbal understanding and agreement with our assessment and plan at this time. The documentation in this chart was dictated using [facility] dictation software. Please excuse any dictation errors. Quality:SDOH Health Related Social Needs: No Data to Display PFSH All Active Problems (Updated 04/08/24 @ 07:37 by Audi Kasper DO) Pain, dental (Acute) Headache, migraine (Chronic) No significant past surgical history (Acute) Post concussion syndrome (Acute) Mild concussion (Acute) Cellulitis of face (Acute 01/15/12) Migraine without aura and without status migrainosus, not intractable (Chronic 01/11/15) Hx migraines since 8yo, IMproved in recent years .. CUrrent H/A not migranous per se, but assoc neuralgia may be new symptoms for him .. Suggest Neuro to review/evaluate, especially as he may have migraines to some extent through life. Heart murmur (Chronic 01/15/12) innocent Family History Mother Essential hypertension Sister Age: 14 No problems noted. Father No problems noted. Other Diabetes MGGF Essential hypertension MGM Social History (Updated 09/19/23 @ 15:40 by Amparo Mccoy RN) Smoking/Tobacco Use Status: Never Smoking risk assessment performed?: Yes Alcohol Intake: current Alcohol Intake frequency: holidays/special occasions only Alcohol type: beer and hard liquor Drug use: Never Substance use type: does not use Adopted: No Caregiver/Support person: No Foster care: No Household members: spouse and significant other Housing: apartment Number of Children: 0 number of grandchildren: 0 Communication Needs: None Education Level: high school Do you need help understanding health information?: Rarely 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 Pets and animals: Yes Pets and animals: cat(s) Sexually active: Yes Do you think of yourself as: straight/heterosexual Current gender identity: male What is your relationship status?: How often do you talk on the phone with friends or family?: twice per week How often do you get together with friends or relatives?: twice per week Do you belong to any clubs or organized social groups?: no Panel score (0-1 are the most socially isolated patients): 2 What type of physical activity do you participate in: regular exercise and other Details: at home workouts Duration: 15-30 minutes/day Frequency: 1-2 times per week Marybeth/Worship: None Special marybeth needs: No Seatbelt use: always Helmet use: Yes 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
[2024-04-08] MEDS: Amox. 875/Clav. 125, 2 TABS/BTL 1 TAB PO (07:41)
== END 2024-04-08 07:43 | disposition home or self-care (01) ==
PROVIDERS: Emergency Provider Student in an Organized Health Care Education/Training Program; PCP Family Medicine
DX: K08.89 Other specified disorders of teeth and supporting structures (principal)
CPT/HCPCS: 99283

== ENCOUNTER 2024-05-28 15:40 | Emergency (ER) | payer OTHER, SELFPAY ==
[2024-05-28 15:41] VITALS: BP 133/92; PULSE 110; RESP 14; TEMP 36.8; O2SAT 96
--- NOTE | 2024-05-28 15:45 | DI.RAD_ITS ---
Exam(s) XR ELBOW LT COMPLETE EXAM: XR ELBOW LT COMPLETE CLINICAL HISTORY: L elbow pain; snowboarding injury. TECHNIQUE: 2D digital imaging was performed. COMPARISON: No exams were available for comparison FINDINGS: Four views There are no obvious fractures but there is a joint effusion with elevation both anterior and posteri or fat pads. Therefore there is probably an occult fracture. There is no swelling of the olecranon bursa. No incidental osseous lesions. Epicondyles appear unremarkable. IMPRESSION: Suspect occult fracture given that there is joint effusion-hemarthrosis. Close follow-up recommended DATA REPOSITORY: RADIATION DOSE DELIVERED:
--- NOTE | 2024-05-28 15:48 | ED.GENADUL_ITS ---
Discharge Plan Disposition Patient Disposition: Home Condition: Stable Discharge Details Clinical Impression: Fracture of head of left radius Primary Care Provider: Sea Maravilla ED Provider: Audi Moseley Home Meds and New Rx's Prescriptions: No Action No Known Home Meds Discharge Instructions Instructions: Radius Fracture Additional Instructions: You were seen in the emergency department for the subtle fracture of your left radial head and neck, you need to remain in the long-arm splint and sling while you await seeing orthopedics for casting. Please use therapeutic dosing of Tylenol (acetamenophen) & Advil (ibuprofen) in an alternating fashion as follows: Take 1000mg of Tylenol every 6 hours without missing doses- that is 4 times per day. [place] in between the Tylenol dosings, take 400-600mg of Advil also on a 6 hour schedule, that is also 4 times per day. The daily maximum dosing of Tylenol is 4000mg, and the daily maximum dosing of Advil is 2400mg. This is safe to do for weeks. Please note that some common cold medications & prescription pain medications may contain acetamenophen and you need to read OTC drug labels and factor that in to maximum daily dosings. Please rest, ice, compress and elevate the area often over the next few days. Follow-up with orthopedic care, return for any signs of neurovascular compromise distal to the left elbow. Stand Alone Forms: Work Release Referrals: [facility] [Provider Group] Sea Maravilla DO [Primary Care Provider] - Discharge Data Discharge Date/Time-TO BE ENTERED AT DEPARTURE: 05/28/24 17:47 HPI General Date/Time Provider Initiated Documentation: 05/28/24 15:46 . HPI Narrative: 23 year-old male presents to ED today by POV/ambulating with a chief complaint of L elbow injury from a snowboard fall with onset today. Quality described as painful to move the L elbow, no radiation to swelling, ecchymosis, numbness, tingling, endorses limited ROM to elbow, denies hand pain, denies shoulder pain, denies headstrike/LOC. Severity is described as moderate. Palliating factors include nothing specific attempted. Provoking factors include nothing specific. Events leading up to the incident/Associated Symptoms: Patient is right-hand dominant. Patient not anticoagulated. Related Data Home Medications ?Medication ?Instructions ?Recorded ?Confirmed Unknown [No Known Home Meds] 05/28/24 05/28/24 Allergies Allergy/AdvReac Type Severity Reaction Status Date / Time codeine AdvReac Mild hyper Verified 05/28/24 15:45 General Stated Complaint: Orthopedic IVON: 4 Review of Systems All systems reviewed & are unremarkable except as noted in HPI and below Exam Narrative Exam Narrative: GENERAL APPEARANCE: Well-nourished, non-toxic, awake and alert, atraumatic, no acute distress. SKIN: Warm, pink, dry, intact, without rashes/lesions/ulcerations. HEAD: Normocephalic, atraumatic, normal hair distribution for gender/age. EYES: Normal conjunctiva, no exudates on lids/lashes. ENT: Nares patent, no circumoral cyanosis, no facial swelling NECK: Supple, trachea midline, painless cervical ROM. LUNGS/CHEST: Lungs CTA bilaterally, non-labored respirations, normal A/P diameter, symmetrical expansion, no chest wall deformity HEART (CV/PV): Regular rate and rhythm without murmur, no peripheral edema, no JVD. ABDOMEN: Soft, non-distended, no guarding. MSK: Normal ROM, no swelling/deformity to bilateral UEs or LEs, moving all extremities without weakness, no cyanosis, spine midline without tenderness, normal curvature, left elbow tenderness, intact biceps tendon, left radial pulse 2+, pain with supination pronation, no crepitus to olecranon, no radiating pain with palpation of mid forearm, no radiating pain with palpation of mid humerus, no deformity or severe swelling NEURO: Mental Status AAOx4 - alert to person, place, time, events No facial droop, no forehead involvement. Motor: No focal weakness - strength 5/5 in bilateral UEs and LEs, proximal and distal, symmetric. Sensory: sensation intact to light touch globally. Gait normal: patient ambulated without ataxia into ED room. PSYCH: euthymic, cooperative, pleasant, appropriate speech Course Vital Signs Vital signs: Vital Signs Temperature 36.8 C 05/28/24 15:41 Pulse 110 H 05/28/24 15:41 Respiratory Rate 14 05/28/24 15:41 Blood Pressure 133/92 H 05/28/24 15:41 Pulse Oximetry 96 05/28/24 15:41 Temperature 36.8 C 02/20/25 15:41 Pulse 110 H 05/28/24 15:41 Respiratory Rate 14 05/28/24 15:41 Blood Pressure 133/92 H 05/28/24 15:41 Blood Pressure Position Sitting 05/28/24 15:41 Pulse Oximetry 96 05/28/24 15:41 Oxygen Delivery Method Room Air 05/28/24 15:41 Oxygen Flow Rate 0 05/28/24 15:41 Pain Level 9 05/28/24 15:41 Medical Decision Making This dictation utilizes [id number] dictation software and may contain unedited grammatical errors. 23 year-old male presents to ED today by POV/ambulating with a chief complaint of L elbow injury from a snowboard fall with onset today. Quality described as painful to move the L elbow, no radiation to swelling, ecchymosis, numbness, tingling, endorses limited ROM to elbow, denies hand pain, denies shoulder pain, denies headstrike/LOC. Severity is described as moderate. Palliating factors include nothing specific attempted. Provoking factors include nothing specific. Events leading up to the incident/Associated Symptoms: Patient is right-hand dominant. Patients' medical history: Negative, otherwise healthy. Family and social history: Noncontributory. Pertinent exam findings / vital signs include left elbow tenderness, intact biceps tendon, left radial pulse 2+, pain with supination pronation, no crepitus to olecranon, no radiating pain with palpation of mid forearm, no radiating pain with palpation of mid humerus, no deformity or severe swelling. Differential / pathologies of concern include fracture, sprain/strain, less likely biceps tendon rupture. Diagnostic studies of: -XR L elbow-shows hemarthrosis and likely occult fracture. -CT elbow shows an oblique nondisplaced fracture of the radial head/neck Interventions of: -Placed in a posterior long-arm splint and placed in a sling, spoke with Dr. Hairston of orthopedics who recommends removal of the splint in a few days once patient is comfortable and just remaining in the sling and he will follow-up in office. ED Course/Assessment/Plan: 23-year-old male had a snowboard fall today, has injury to left elbow showing oblique nondisplaced fracture of the radial head/neck on CT, he was placed in a posterior long-arm splint and sling with directions to remove the splint in a few days time at most, counseled on therapeutic dosing of Tylenol and ibuprofen and RICE therapy and following up with orthopedics in the outpatient setting. Strict return criteria for any signs of neurovascular compromise distal to left elbow. Findings not consistent with unstable fracture, neurovascular compromise. Disposition of fracture of head of left radius. Patient verbalized understanding of the plan and return to ED criteria and engaged in shared decision making. Medical Records Medical records reviewed: Yes I reviewed the patient's medical records. Imaging Data Radiologic Study: Attestation: I personally reviewed and interpreted this imaging study as follows: Imaging: X-Ray Radiologist's impression: EXAM: XR ELBOW LT COMPLETE CLINICAL HISTORY: L elbow pain; snowboarding injury. TECHNIQUE: 2D digital imaging was performed. COMPARISON: No exams were available for comparison FINDINGS: Four views There are no obvious fractures but there is a joint effusion with elevation both anterior and posterior fat pads. Therefore there is probably an occult fracture. There is no swelling of the olecranon bursa. No incidental osseous lesions. Epicondyles appear unremarkable. IMPRESSION: Suspect occult fracture given that there is joint effusion-hemarthrosis. Close follow-up recommended Radiologic Study #2: Attestation: I personally reviewed and interpreted this imaging study as follows: Imaging: CT Scan Radiologist's impression: EXAM: CT UPPER EXTREMITY LT WO CLINICAL HISTORY: suspect occult L elbow fx on XR TECHNIQUE: Imaging Protocol: Axial computed tomography images with coronal and sagittal reformatted images were created and reviewed. CONTRAST MATERIAL: Intravenous: Omnipaque 350 Contrast volume:structured data in ml Contrast route:IV - Oral: yes / no COMPARISON: No exams were available for comparison FINDINGS: OSSEOUS: There is a E subtle nondisplaced oblique fracture in the radial head-neck. The fracture line attains the are sticker surface of the humeral head on its medial aspect. There is no step at this level. Capitellum appears unremarkable as do the trochlea and epicondyles. Joint effusion-hemarthrosis evident. IMPRESSION: Subtle nondisplaced oblique fracture of the radial head-neck. Hemarthrosis. Quality:SDOH Health Related Social Needs: No Data to Display PFSH All Active Problems (Updated 05/28/24 @ 17:10 by ESA Monroy) Fracture of head of left radius (Acute) Headache, migraine (Chronic) No significant past surgical history (Acute) Post concussion syndrome (Acute) Mild concussion (Acute) Cellulitis of face (Acute 01/15/12) Migraine without aura and without status migrainosus, not intractable (Chronic 01/11/15) Hx migraines since 8yo, IMproved in recent years .. CUrrent H/A not migranous per se, but assoc neuralgia may be new symptoms for him .. Suggest Neuro to review/evaluate, especially as he may have migraines to some extent through life. Heart murmur (Chronic 01/15/12) innocent Family History Mother Essential hypertension Sister Age: 14 No problems noted. Father No problems noted. Other Diabetes MGGF Essential hypertension MGM Social History (Updated 09/19/23 @ 15:40 by Amparo Mccoy RN) Smoking/Tobacco Use Status: Never Smoking risk assessment performed?: Yes Alcohol Intake: current Alcohol Intake frequency: holidays/special occasions only Alcohol type: beer and hard liquor Drug use: Never Substance use type: does not use Adopted: No Caregiver/Support person: No Foster care: No Household members: spouse and significant other Housing: apartment Number of Children: 0 number of grandchildren: 0 Communication Needs: None Education Level: high school Do you need help understanding health information?: Rarely 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 Pets and animals: Yes Pets and animals: cat(s) Sexually active: Yes Do you think of yourself as: straight/heterosexual Current gender identity: male What is your relationship status?: How often do you talk on the phone with friends or family?: twice per week How often do you get together with friends or relatives?: twice per week Do you belong to any clubs or organized social groups?: no Panel score (0-1 are the most socially isolated patients): 2 What type of physical activity do you participate in: regular exercise and other Details: at home workouts Duration: 15-30 minutes/day Frequency: 1-2 times per week Marybeth/Quaker: None Special marybeth needs: No Seatbelt use: always Helmet use: Yes 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
--- NOTE | 2024-05-28 16:15 | DI.CT_ITS ---
Exam(s) CT UPPER EXTREMITY LT WO EXAM: CT UPPER EXTREMITY LT WO CLINICAL HISTORY: suspect occult L elbow fx on XR TECHNIQUE: Imaging Protocol: Axial computed tomography images with coronal and sagittal reformatted images were created and reviewed. CONTRAST MATERIAL: Intravenous: Omnipaque 350 Contrast volume:structured data in ml Contrast route:I V - Oral: yes / no COMPARISON: No exams were available for comparison FINDINGS: OSSEOUS: There is a E subtle nondisplaced oblique fracture in the radial head-neck. The fracture line attains the are sticker surface of the humeral head on its medial aspect. There is no step at this level. Capitellum appears unremarkable as do the trochlea and epicondyles. Joint effusion-hemarthrosis evident. IMPRESSION: Subtle nondisplaced oblique fracture of the radial head-neck. Hemarthrosis. Report called by myself to ER provider 05/28/2024 at 5 p.m. RADIATION DOSE DELIVERED: 63.26mGy.cm Total DLP DATA REPOSITORY: All CT scans at this facility are submitted to the National Radiology Data Registry (NRDR) Dose Index Registry (DIR) with the [employer] (ACR). RADIATION OPTIMIZATION: All CT scans at this facility use at least one of these dose optimization te chniques: automated exposure control; mA and/or kV adjustment per patient size (includes targeted exa ms where dose is matched to clinical indication); or iterative reconstruction.
[2024-05-28 17:42] VITALS: BP 133/92; PULSE 110; RESP 14; TEMP 36.8; O2SAT 96
== END 2024-05-28 17:47 | disposition home or self-care (01) ==
PROVIDERS: Emergency Provider Physician Assistant; PCP Family Medicine
DX: S52.132A Displaced fracture of neck of left radius, initial encounter for closed fracture (principal); W00.0XXA Fall on same level due to ice and snow, initial encounter; Y93.23 Activity, snow (alpine) (downhill) skiing, snowboarding, sledding, tobogganing and snow tubing; Y92.838 Other recreation area as the place of occurrence of the external cause
CPT/HCPCS: 29105; 99285; 73080; 73200; 99284